=== PATIENT | male | born 1955 | race Caucasian/White ===

== ENCOUNTER 2023-02-05 00:36 | Day surgery (SDC) | payer MEDICARE, BC, SELFPAY ==
[2023-01-28 13:12] VITALS: BMI 38.5
--- NOTE | 2023-01-28 13:26 | PC.NURSE ---
Report to the Outpatient Waiting Room, entrance under the green pavilion located off [facility], at time ___0800____ on date __02/05/23 . Planned Procedure Time: ___1000 . Time changes happen often and if your time is changed the preop area will call you the afternoon before. - You and your visitor will be asked to self-screen and do not enter if you have any COVID symptoms. - Only one visitor is requested with a max of two and NO children visitors are allowed at this time. - The patient visitor may be requested to leave or wait in car when not with patient due to distancing restrictions. - A mask is optional within the hospital at this time. Patients may have clear liquids (water, carbonated beverages, clear teas, apple juice) until 3 hours prior to surgery (0700 AM) with a maximum of 20 ounces. - No food from midnight until time of surgery - Infants may have breast milk until 4 hours before surgery, infant formula 6 hours prior to surgery. - Children will be allowed to drink immediately following surgery. If applicable, please bring a bottle or sippy cup to assist with drinking. Juice, water, soda, and popsicles are readily available. For infants on formula, please bring formula the day of surgery. Pacifiers are allowed. Take the following medications with a SIP of water the morning of surgery: _AMLODIPINE, MONTELUKAST, INHALER__ DO NOT STOP ANY OF YOUR OTHER PRESCRIPTION MEDICATIONS PRIOR TO SURGERY ?EXCEPT THE FOLLOWING Medications to discontinue per physician NNONE Date to take last dose Please no make-up, nail korean, hairspray, perfume, deodorant, or body powder the day of surgery. No jewelry (including any body piercings) or valuables the day of surgery, leave them at home. Please take a shower or bath the night before, or the morning of, surgery with an antibacterial soap. Wear comfortable, loose fitting clothing. Children are encouraged to wear pajamas. - Jewelry must be removed prior to entering the operating room. Rings and piercings that are not removed may be cut off. - The hospital will not accept responsibility for valuables. - Please leave all valuables, including medications, at home the day of surgery. If you are going home after surgery, a licensed local company refrigerated truck driver must drive you home. - NO public transportation without another adult if you receive anesthesia. - We recommend that an adult stay with you for 24 hours following discharge. - We also recommend that you do not drive, make important decision, drink alcoholic beverages, or take any drugs that were not prescribed by your health care provider for at least 24 hours after your discharge time. For Pediatric surgeries, we recommend two adults accompany the child home. Follow any additional instructions given to you from your surgeon. If you or anyone in your household have experienced Covid symptoms in the past week, please notify your surgeon or the nurse liaison at the phone number below for possible testing. Telephone instructions given to ___PATIENT and asked if any additional questions and then verbalized understanding. Patient advised to call surgeon office or pre surgery nurse liaison [phone] if any additional questions.
--- NOTE | 2023-01-31 15:50 | PM.IMHP ---
H&P: HPI History of Present Illness Date/Time: 01/31/23 15:50 Chief Complaint: the patient is a 67-year-old male who sees Dr. Daniel regarding his left knee. The patient has a chronic ongoing history of pain localized to the left knee joint worse with activity somewhat relieved by rest. Patient has aching pain that limits what he can do reports mechanical symptoms with swelling cannot stand or walk for long periods he has trouble twisting or turning squatting kneeling going up and down stairs. Despite conservative measures including cortisone therapy and anti-inflammatories his symptoms continued. The patient had an MRI scan done this showed stabilizing ligaments of the knee to be intact there is some bone marrow edema of the medial tibial plateau with slight depression of the articular surface. There are oblique tears throughout the lateral meniscal body anterior horn and posterior horn and possible small radial tear of the inner margin of the body of the lateral meniscus. There are oblique tears of the body and posterior horn of the medial meniscus as well with a question of a radial or vertically oriented tear the posterior horn of the medial meniscus also. There is mild thinning of the articular cartilage in the medial compartment no significant chondromalacia of the patellofemoral or lateral compartments are noted. There is a moderate to large knee joint effusion and a tiny popliteal fossa cyst MRI report also reveals possible diffuse subcutaneous edema which may be related to venous stasis changes CHF or cellulitis. No cellulitis is noted on exam. At this point the patient is aware he has some degenerative changes throughout the knee and may not get full relief is knee pain for knee arthroscopy however he would like to proceed he has discussed this in detail with Dr. Daniel. Review of Systems Review of Systems: Ten point review of systems otherwise negative [facility] Social History Social History Smoking status: Current every day smoker Second hand tobacco smoke exposure: Yes Additional smoking assessment comments: STATES SMOKED 1PK/DAY/40YRS NOW DOWN TO 1PK EVERY 3 DAYS Alcohol intake: current Drinks per week: 6 Substance use: never Substance use type: does not use Living arrangements: with family Spiritual care concerns: No Meds Home Medications and Allergies Home Medications Medication Instructions Recorded Confirmed Type amitriptyline 50 mg tablet 50 mg HS 01/28/23 01/28/23 History amlodipine 10 mg tablet 10 mg QAM 01/28/23 01/28/23 History fluticasone fur. 200 mcg-umeclid 1 inh inhalation DAILY 01/28/23 01/28/23 History 62.5 mcg-vilant 25 mcg inhalat.powder (Trelegy Ellipta) hydrochlorothiazide 25 mg tablet 25 mg QAM 01/28/23 01/28/23 History montelukast 10 mg tablet 10 mg QAM 01/28/23 01/28/23 History Allergies Allergy/AdvReac Type Severity Reaction Status Date / Time No Known Allergies Allergy Unverified 01/28/23 13:09 Exam Narrative: on exam the patient is noted be a well-developed well-nourished male no acute distress alert orient x3. Normal mood and affect. Hearing and vision are intact. Respiratory is good no distress. Pulse regular rate rhythm. Abdomen benign. The patient is noted to be 6 ft 2 in tall 300 lb with a BMI 38.5. Extremities showed the patient's left knee to be painful with manipulation and range of motion he has tenderness on the joint lines with a positive Peyton exam negative Tejal knee joint is otherwise stable strength is 5 5 he does have moderate knee joint effusion left knee pain through the arc of motion tenderness medial and laterally. Neurovascular is intact skin is intact MRI scan is as above hips move well with negative Stinchfield negative Luiza. Patient walks with a limp because of his left knee pain central nervous system within normal limits. Assessment and Plan Assessment and plan
[2023-02-05] VITALS (9 sets, daily range): BP systolic 148–174; BP diastolic 82–98; PULSE 75–92; RESP 15–20; TEMP 36.4; O2SAT 96–100
--- NOTE | 2023-02-05 06:51 | WPDHPUPDATE1 ---
History and Physical Update Update Date/Time: 02/05/23 06:51 History and Physical has been reviewed, including an updated exam of the patient. There are NO changes in the patient's condition. Risks, benefits, and alternatives have been discussed and questions answered. Patient agrees to proceed with procedure.
[2023-02-05] MEDS: ACETAMINOPHEN 500 MG TABLET 1000 MG PO (08:23)
[2023-02-05] MEDS: LACTATED RINGERS 1,000 ML 30 ML IV CONT (08:50)
[2023-02-05] MEDS: KETOROLAC 15 MG/ML VIAL (*BKC) IV PUSH (08:57)
--- NOTE | 2023-02-05 09:39 | P.PNAN_ITS ---
Anes - Initial Pre Proc Eval Procedure: Operation Date: 02/05/23 10:00 Proposed Procedures p Left Knee Arthroscopy, Partial Medial and Lateral Meniscectomy, Proceed As Indicated - Armando Daniel MD Date/Time: 02/05/23 09:39 Surgeon: Armando Daniel MD Pre Op Diagnosis: medial & lateral meniscus tear left knee Patient Data Age: 67 Gender: M Height: 1.88 m Weight: 162.4 kg Last Vital Signs Temp 36.4 C 02/05/23 08:12 Pulse 92 02/05/23 08:12 Resp 20 02/05/23 08:12 BP 174/84 H 02/05/23 08:12 Pulse Ox 96 02/05/23 08:12 O2 Del Method Room Air 02/05/23 08:12 Allergies Allergy/AdvReac Type Severity Reaction Status Date / Time No Known Allergies Allergy Unverified 02/05/23 08:18 Home Medications Medication Instructions Recorded Confirmed Type amitriptyline 50 mg tablet 50 mg HS 01/28/23 02/05/23 History amlodipine 10 mg tablet 10 mg QA 01/28/23 02/05/23 History fluticasone fur. 200 mcg-umeclid 1 inh inhalation DAILY 01/28/23 02/05/23 History 62.5 mcg-vilant 25 mcg inhalat.powder (Trelegy Ellipta) hydrochlorothiazide 25 mg tablet 25 mg QA 01/28/23 02/05/23 History montelukast 10 mg tablet 10 mg QAM 01/28/23 02/05/23 History albuterol sulfate 90 mcg/actuation 2 puff inhalation Q4-5H PRN 02/05/23 02/05/23 History aerosol inhaler Wheezing Patient hx anesthesia problems: none Family hx anesthesia problems: none Results Review: All pre-operative results and documents have been reviewed as part of the pre- operative evaluation. PMFSH Past Medical History Medical History COPD (chronic obstructive pulmonary disease) Morbid obesity Smoker Social History Social History Smoking status: Current every day smoker Second hand tobacco smoke exposure: Yes Additional smoking assessment comments: STATES SMOKED 1PK/DAY/40YRS NOW DOWN TO 1PK EVERY 3 DAYS Alcohol intake: current Drinks per week: 6 Substance use: never Substance use type: does not use Living arrangements: with family Spiritual care concerns: No Anes - Eval Final PreProcedure Day of Procedure 02/05/23 09:39 Patient weight: morbidly obese Heart: regular rate and rhythm Lungs: decreased breath sounds Airway: Mallampati scale class II Neurological: alert and oriented Last oral intake: >/= 8 hours ASA classification: III Emergent: no Anesthetic plan: proceed Anesthesia type and monitoring: general LMA and standard monitoring Results Review: All pre-operative results and documents have been reviewed as part of the pre- operative evaluation. Informed Consent: The patient's anesthetic plan and its attendant risks and benefits were discussed with the patient/family/POA. Questions were solicited and answers provided to the satisfaction of the patient/family/POA.
[2023-02-05] MEDS: ceFAZolin 3 GM/D5W 100 ML 100 ML IVPB (10:11)
[2023-02-05] MEDS: LIDO 1%/EPINEPHRINE 1:100,000 20 ML VIAL INFILTRATE (10:26)
--- NOTE | 2023-02-05 10:49 | W.PM.PROC2 ---
Procedure Note - Detailed Date of Procedure 02/05/23 Pre-op Diagnosis medial & lateral meniscus tear left knee Post-op Diagnosis Same Procedure Performed [Left] knee arthroscopy with partial meniscetomy, medial and lateral Surgeon Armando Daniel MD Anesthesia General Description of Procedure Patient brought to the operating room and anesthetic was administered. The knee was steriley prepped and drapped in the usual manner. Standard portals were used. Superior medial portal was used for the outflow cannula, inferior lateral portal was used for the scope, inferior medial portal was used for the instruments. Arthroscopy was performed, the patellar femoral joint showed degenerative changes. The medial compartment showed a complex tear. The lateral compartment a large complex tear in the midbody. The ACL was intact. Using baskets and arabella the meniscal tears were trimmed back to a stable base so the nothing further could be pulled into the joint. Any loose or delaminated fragments were gently trimmed to a stable base. At this point the instruments were withdrawn, sutures placed and patient left the operating room in satisfactory condition. Estimated Blood Loss 20 Drains No Packing No Pathology None sent Complications No immediate complications Condition Stable Disposition PACU
[2023-02-05] MEDS: fentaNYL CITRATE INJ (*CRX) 100 MCG/2 ML VIAL 25 MCG IV PUSH (11:40)
[2023-02-05] MEDS: oxyCODONE HCL (*CRX) 5 MG TAB IR PO (11:57)
== END 2023-02-05 13:02 | disposition home or self-care (01) ==
PROVIDERS: PCP Internal Medicine; Visit Provider Orthopaedic Surgery
PROC: (CPT 29870; principal; 2023-02-05 10:00)
DX: M23.362 Other meniscus derangements, other lateral meniscus, left knee (principal); M23.332 Other meniscus derangements, other medial meniscus, left knee; J44.9 Chronic obstructive pulmonary disease, unspecified; E66.01 Morbid (severe) obesity due to excess calories; Z68.41 Body mass index [BMI] 40.0-44.9, adult; F17.210 Nicotine dependence, cigarettes, uncomplicated
CPT/HCPCS: 29880; A9270; J0690; J1100; J1885; J2250; J2405; J2704; J3010; J7120

== ENCOUNTER 2024-02-02 02:20 | Inpatient (IN) | payer MEDICARE, SELFPAY ==
[2024-02-02] VITALS (12 sets, daily range): BP systolic 102–120; BP diastolic 58–81; PULSE 69–99; RESP 16–24; TEMP 36.4–36.8; O2SAT 90–100; BMI 50.3
--- NOTE | ~2024-02-02 | US_ITS ---
Limited Abdominal Sonogram: Real-time sonographic imaging of the right upper quadrant was performed. Clinical History: Abdominal pain, cirrhosis Findings: The liver appears echogenic, with no evidence of mass lesion or bile duct dilatation. Main portal vein demonstrates normal direction of flow. Liver measures 22.7 cm in length. The gallbladder is well distended, and appears normal with no evidence of gallstone or wall thickening. The common b ile duct is not visualized. The pancreas, aorta, and IVC are obscured by bowel gas shadowing/body foreman bitus. Impression: Diffuse fatty infiltration of the liver, with associated hepatomegaly. Reviewed, dictated and finalized at location . Impression: Diffuse fatty infiltration of the liver, with associated hepatomegaly.
--- NOTE | ~2024-02-02 | CT_ITS ---
CT of the Abdomen and Pelvis: Indication: Abdominal pain Technique: 2.5 mm axial scans were obtained through the abdomen and pelvis following intravenous adm inistration of 100 cc of Omnipaque 350. Dose reduction technique was used on this scan by utilizing a utomated exposure control and iterative reconstruction technique. The dose-length product (DLP) was 1 782.84 mGy-cm. Findings: Scans through the lung bases demonstrate small right pleural effusion. There is diffuse hepatic steatosis. The spleen, pancreas, gallbladder, adrenals and kidneys are withi n normal limits. No evidence of aortic aneurysm. No lymphadenopathy. No bowel obstruction or bowel wall thickening. Suggestion of minimal pericolonic inflammatory change about the cecum, nonspecific.. Images through the pelvis were performed. Urinary bladder unremarkable. No pelvic mass seen. No ascit es. Impression: Possible mild pericolic inflammatory change about the cecum/ascending colon, nonspecific. Correlate f or subtle colitis. Diffuse hepatic steatosis. Small right pleural effusion. Reviewed, dictated and finalized at location . Impression: Possible mild pericolic inflammatory change about the cecum/ascending colon, no nspecific. Correlate for subtle colitis. Diffuse hepatic steatosis. Small right pleural effusion.
--- NOTE | ~2024-02-02 | XR_ITS ---
EXAMINATION: XR abdomen/kub 1V INDICATION: Abdominal distention TECHNIQUE: Supine views of the abdomen were obtained on four radiographs. COMPARISON: CT, 02/02/2024 FINDINGS: There are no definitely dilated loops of bowel. Contrast from recent CT partially opacifies the urinary bladder. No free intraperitoneal gas is identified. There is a phlebolith of the left pe lvis. 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 IMPRESSION: 1. No radiographic correlate for the patient's symptoms. Reviewed, dictated and finalized at location F.
--- NOTE | 2024-02-02 02:35 | PC.NURSE ---
this rn attempted to initiate iv access. this rn had an unsuccessful attempt and was trying to obtain blood tubes. pt stated, if you are not gonna get it and miss then don't try at all, get me someone else . this rn removed iv access and asked another rn to attempt at a line. ed pharmacist in charge owner made aware.
[2024-02-02 03:16] LABS: Basophils Percent Auto 0.2 % (0.2-1.2); Eosinophils Percent Auto 0.2 % (0-4.4); Hematocrit 25.3 % (42.0-52.0); Hemoglobin 8.4 g/dL (14.0-18.0); Immature Granulocyte Absolute 0.08 K/mm3 (0.00-0.031); Immature Granulocyte Percent A 1.5 % (0-0.5); Immature Platelet Fraction Pct 7.7 % (0.9-11.2); Lymphocytes Absolute Auto 0.98 K/mm3 (0.9-3.2); Mean Corpuscular HGB Conc 33.2 g/dl (32-36); Mean Corpuscular Hemoglobin 28.9 pg (26-34); Mean Corpuscular Volume 86.9 fl (80-100); Mean Platelet Volume 10.4 fl (7.4-10.4); Monocytes Absolute Auto 0.4 K/mm3 (0.1-0.6); Monocytes Percent Auto 7.9 % (2.6-8.5); Neutrophils Absolute Auto 3.9 K/mm3 (1.3-6.7); Neutrophils Percent Auto 72.2 % (45.5-73.1); Platelet Count Result 105 k/mm3 (150-375); Red Blood Count 2.91 M/mm3 (4.6-6.20); White Blood Count 5.4 K/mm3 (4.5-10.0)
--- NOTE | 2024-02-02 03:19 | ECG_ITS ---
Measurements Intervals [place] Rate: 90 P: 94 PA: 191 QRS: -88 QRSD: 166 T: 93 QT: 485 QTc: 596 Interpretive Statements SINUS RHYTHM ATRIAL COUPLETS AND ATRIAL PREMATURE COMPLEX RIGHT BUNDLE BRANCH BLOCK LEFT ANTERIOR FASCICULAR BLOCK BASELINE ARTIFACT- I, II, III, AVR, AVL, AVF, V1-V6 ABNORMAL ECG NO PREVIOUS ECG AVAILABLE FOR COMPARISON Electronically Signed On 02-02-2024 6:40:20 CDT by Jerry Ravi D.O.
[2024-02-02 03:39] LABS: Alanine Aminotransferase 17 U/L (6-50); Alkaline Phosphatase 113 U/L (38-126); Anion Gap 10 mmol/L (8-16); Aspartate Amino Transferase 70 U/L (17-59); Bilirubin,Total 2.5 mg/dL (0.2-1.3); Blood Urea Nitrogen 24 mg/dL (9-20); Carbon Dioxide 32 mmol/L (22-30); Chloride 80 mmol/L (98-107); Estimated CRCL calculation 117 ml/min; Estimated Glomerular Filt Rate > 60; Glucose 108 mg/dL (65-110); Potassium 2.5 mmol/L (3.4-5.0); Sodium 122 mmol/L (137-145)
[2024-02-02] MEDS: ONDANSETRON INJ 4 MG/2 ML VIAL IV PUSH (03:42)
[2024-02-02 03:52] LABS: Lipase 194 U/L (23-300); Magnesium 2.1 mg/dL (1.6-2.3)
[2024-02-02 04:04] LABS: NT Pro B Type Natriuretic Pept 1710 pg/mL (19.9-100); Troponin I < 0.012 ng/mL (0.000-0.034)
[2024-02-02 04:08] LABS: INR 1.2; Prothrombin Time 15.3 Seconds (11.1-14.7)
[2024-02-02 04:09] LABS: Partial Thromboplastin Time 28.3 Seconds (22.3-36.8)
--- NOTE | 2024-02-02 04:18 | ED.GENADULT ---
HPI - General Adult General Chief complaint: Abdominal Pain Stated complaint: ABD PAIN Time Seen by Provider: 02/02/24 02:55 History of Present Illness HPI narrative: Patient is a 68-year-old gentleman who presents emergency department with chief complaint of feeling very weak and having nausea. The patient reports that he feels as though he is swollen and reports that he feels weaker than normal. The patient reports he has been in both [facility] and [facility] and reports that his symptoms have not been improving. The patient states that he has no chest pain denies fever Related Data Home Medications Medication Instructions Recorded Confirmed amitriptyline 50 mg tablet 50 mg HS 01/28/23 02/05/23 amlodipine 10 mg tablet 10 mg QAM 01/28/23 02/05/23 fluticasone fur. 200 mcg-umeclid 1 inh inhalation DAILY 01/28/23 02/05/23 62.5 mcg-vilant 25 mcg inhalat.powder (Trelegy Ellipta) hydrochlorothiazide 25 mg tablet 25 mg QA 01/28/23 02/05/23 montelukast 10 mg tablet 10 mg QAM 01/28/23 02/05/23 albuterol sulfate 90 mcg/actuation 2 puff inhalation Q4-5H PRN 02/05/23 02/05/23 aerosol inhaler Wheezing carvedilol 12.5 mg tablet 12.5 mg PO BID 02/02/24 chlorthalidone 25 mg tablet 25 mg PO DAILY 02/02/24 furosemide 40 mg tablet 40 mg PO BID 02/02/24 Allergies Allergy/AdvReac Type Severity Reaction Status Date / Time No Known Allergies Allergy Unverified 02/05/23 08:18 Review of Systems Review of Systems: A 10 system review of systems was completed on the patient and is negative except for what is stated in the HPI. Nursing and ancillary documentation was reviewed. FOR[facility]LY [facility] Past Medical History Medical History COPD (chronic obstructive pulmonary disease) Morbid obesity Smoker Social History Social History Smoking status: Current every day smoker Second hand tobacco smoke exposure: Yes Additional smoking assessment comments: STATES SMOKED 1PK/DAY/40YRS NOW DOWN TO 1PK EVERY 3 DAYS Alcohol intake: current Drinks per week: 6 Substance use: never Substance use type: does not use Living arrangements: with family Spiritual care concerns: No Exam Narrative: GENERAL: Well-appearing, well-nourished, and in no acute distress. HEAD: Normocephalic, atraumatic. EYES: PERRLA and EOMI. ENT: Nares clear, no rhinorrhea or epistaxis. Mucous membranes moist. NECK: Supple. CHEST: Clear to auscultation. No respiratory distress. HEART: Regular rate and rhythm. No murmur heard. Normal peripheral pulses. ABDOMEN: Soft, nontender, nondistended, normal active bowel sounds. EXTREMITIES: Normal range of motion. No edema. SKIN: Warm, dry, no rash. NEURO: No focal deficits. Alert and oriented x3. PSYCH: Normal mood and affect. Course Vital Signs Vital signs: Vital Signs Temperature 36.6 C 02/02/24 02:15 Pulse Rate 99 02/02/24 02:15 Respiratory Rate 19 02/02/24 02:15 Blood Pressure 105/81 02/02/24 02:15 Pulse Oximetry 97 02/02/24 02:15 Oxygen Delivery Room Air 02/02/24 02:15 Temperature 36.6 C 02/02/24 02:15 Pulse Rate 86 02/02/24 04:02 Respiratory Rate 24 H 02/02/24 04:02 Blood Pressure 111/59 L 02/02/24 04:02 Pulse Oximetry 100 02/02/24 04:02 Oxygen Delivery Room Air 02/02/24 02:15 Medical Decision Making [facility] Narrative Medical decision making narrative: Differential diagnosis includes intra-abdominal infection, electrolyte abnormality, alcohol intoxication, alcohol withdrawal, CHF Patient is found to have a lactic acid of 4.0 potassium was 2.5 sodium was 122 ETOH was 14 lipase was 194 The patient was given less than 30 per kilos of fluids due to possible fluid overload CT scan showed Possible mild pericolic inflammatory change about the cecum/ascending colon, nonspecific. Correlate for subtle colitis. Diffuse hepatic steatosis. Small right pleural effusion Vital
[2024-02-02] MEDS: KCL 20 MEQ/SW 100 ML 100 ML 50 MEQ IVPB (04:32)
[2024-02-02] MEDS: POTASSIUM CHLORIDE 20 MEQ PACKET (FOR LIQUID) 40 MEQ PO (04:32)
[2024-02-02] MEDS: SODIUM CHLORIDE 0.9% IV 1,000 ML 999 ML IV CONT ×2 (04:42→06:48)
[2024-02-02 05:09] LABS: Ethanol 14 mg/dL (<10)
[2024-02-02] MEDS: THIAMINE 500 MG/NS 100 ML 500 MG/100 ML BAG 200 MG IVPB (05:55)
[2024-02-02] MEDS: PIPERACILLN/TAZ 3.375GM/NS50ML 3.375 GM/50 ML BAG IVPB ×4 (06:48→23:26)
[2024-02-02 07:04] LABS: Reflex Lactic Acid Yes or No Add Lactic
--- NOTE | 2024-02-02 07:43 | PC.NURSE ---
Assumed care of pt. Pt c/o stretcher uncomfortable, asking when he will be taken to his room. RN attempted to reposition pt for comfort. Informed no room assignment at this time.
--- NOTE | 2024-02-02 07:48 | PC.NURSE ---
Phlebotomy called for assistance with obtaining blood specimens
--- NOTE | 2024-02-02 10:36 | PM.IMHP ---
H&P: HPI History of Present Illness Date/Time: 02/02/24 10:36 Chief Complaint: 1. Abdominal pain 2. Poor appetite Narrative: Reji Vasquez is a 68 yo M with a mHx significant for obesity, ELIA, HTN, Asthma/COPD Over the last week he has become fatigued with malaise; his symptoms were aggravated by exertion, alleviated by rest; associated with nausea, anorexia and poor performance of his ADLs. There were no records of vomiting, fevers, diarrhea, flank pain, fevers, chills or rigors. He does not smoke/chew tobacco, drink alcohol or consume recreational/illicit drugs; his family hx is not contributory to the PC Work-up findings: K 2.5 Na 122 Cl 80 HCO3 32 AG 10 BUN 24 Cr. 0.90 GFR 117 LA: 4 >> 1.1 Mg 2.1 Phos 1.9 T. Bili 2.5 AST 70 ALT 17 ALP 113 BNP 1710 Lipase 194 CTAP: Possible mild pericolic inflammatory change about the cecum/ascending colon, nonspecific. Correlate for subtle colitis. Diffuse hepatic steatosis. Small right pleural effusion. He will be admitted, evaluated and managed for Colitis Review of Systems Constitutional: Constitutional: Reports fatigue and Reports lethargy Eyes: Eyes: Reports no additional eye complaints ENT: Reports Normal hearing present, Denies dysphagia, Denies epistaxis and Denies nasal congestion Cardiovascular: Cardiovascular: Reports leg edema, Denies lightheadedness and Denies palpitations Respiratory: Respiratory: Reports dyspnea and Reports dyspnea on exertion Gastrointestinal: Gastrointestinal: Reports bloating, Denies diarrhea and Denies nausea Genitourinary: Genitourinary: Denies urinary hesitancy, Denies urinary incontinence and Denies urinary urgency Musculoskeletal: Musculoskeletal: Reports myalgias and Denies joint swelling Integumentary/Breasts: Skin/Breast: Reports dry skin and Reports wounds (Right buttocks) Neurologic: Reports system reviewed and no additional complaints, except as documented, Reports abnormal gait and Denies confusion Psychiatric: Psychiatric: Reports no additional psychiatric complaints [facility] Past Medical History Medical History Chronic pain syndrome COPD (chronic obstructive pulmonary disease) Hepatic steatosis Hypertension Morbid obesity Obstructive sleep apnea Smoker Social History Social History Smoking status: Current every day smoker Second hand tobacco smoke exposure: Yes Alcohol intake: current Drinks per week: 6 Substance use: never Substance use type: does not use Do You Feel Safe in your Home?: Yes Lack of Transportation: No Lack of Food: Never True Current Housing: I Have Housing Concerned About Future Housing: No Difficulty Paying Gas/Electric Bills: No Difficulty Paying for Meds: No Currently Unemployed: No Education: High School Diploma/GED Difficulty w/ Childcare or Family Care: No Living arrangements: with family Spiritual care concerns: No Meds Home Medications and Allergies Home Medications Medication Instructions Recorded Confirmed Type amitriptyline 50 mg tablet 50 mg PO HS 01/28/23 02/02/24 History amlodipine 10 mg tablet 10 mg QA 01/28/23 02/02/24 History fluticasone fur. 200 mcg-umeclid 1 inh inhalation DAILY 01/28/23 02/02/24 History 62.5 mcg-vilant 25 mcg inhalat.powder (Trelegy Ellipta) hydrochlorothiazide 25 mg tablet 25 mg QA 01/28/23 02/02/24 History montelukast 10 mg tablet 10 mg QA 01/28/23 02/02/24 History albuterol sulfate 90 mcg/actuation 2 puff inhalation Q4-5H PRN 02/05/23 02/02/24 History aerosol inhaler Wheezing hydrocodone 7.5 mg-acetaminophen 1 tablet PO Q4H PRN pain #40 tabs 02/05/23 02/02/24 Rx 325 mg tablet carvedilol 12.5 mg tablet 12.5 mg PO BID 02/02/24 02/02/24 History chlorthalidone 25 mg tablet 25 mg PO DAILY 02/02/24 02/02/24 History furosemide 40 mg tablet 40 mg PO BID 02/02/24 02/02/24 History Allergies Allergy/AdvReac Type Severit
[2024-02-02] MEDS: LORazepam INJ (*CRX) 2 MG/ML VIAL IV PUSH (11:06)
--- NOTE | 2024-02-02 11:09 | PC.NURSE ---
Pt c/o anxiety requesting meds. Ativan given. Noted excoriated area to right chest beneath breast. states chronic condition.
[2024-02-02 11:13] LABS: Lactic Acid 1.1 mmol/L (0.7-2.0); Phosphorus 1.9 mg/dL (2.5-4.5)
[2024-02-02 11:19] LABS: Glucose Point of Care 116 mg/dl (65-105)
--- NOTE | 2024-02-02 13:21 | ADMGEN ---
This patient, Reji Vasquez, was admitted to Medical Room 246-01. Patient/family oriented to hospital policies and general routines including ID bracelet, bed and alarms, visiting hours, pain management, procedures, bathroom and other care routines, personal items, smoking policy, room service/diet, and visiting hours. Information on how to activate the Rapid Response Team has been discussed. Patient/Family are encouraged to report perceived risks to care and to ask questions if they do not understand what they are told or what they should do.
[2024-02-02] MEDS: SODIUM CHLORIDE 0.9% IV 1,000 ML 125 ML IV CONT (13:34)
[2024-02-02 16:09] LABS: Appearance Urine Clear (Clear); Bacteria Urine None Seen /hpf; Bilirubin Urine 2+ (Negative); Blood Urine 2+ (Negative); Color Urine Dark Yellow (Yellow); Glucose Urine UA Negative (Negative); Ketones Urine Trace mg/dL (Negative); Leukocyte Esterase Ur Trace LEU/UL (Negative); Need Manual Microscopic Reviewed; Nitrate Urine Negative (Negative); Protein Urine Trace mg/dL (Negative); RBC Urine 21-50 /hpf (0-2); Specific Grav Ur 1.046 (1.001-1.035); Squamous Epithelial Cell Urine None Seen /hpf (Few); WBC Urine 0-5 /hpf (0-3)
[2024-02-02 16:10] LABS: Add Urine Microscopic? YES
[2024-02-02] MEDS: KETOROLAC 30 MG/ML VIAL (*BKC) IV PUSH ×2 (17:02→21:17)
[2024-02-02] MEDS: POTASSIUM PHOS,M-BASIC-D-BASIC 20 MMOL in SODIUM CHLORIDE 0.9% IV 250 ML 42.78 MMOL IVPB (17:14)
[2024-02-02 18:34] LABS: Glucose Point of Care 135 mg/dl (65-105)
[2024-02-02 18:55] LABS: Alveolar/Arterial O2 Gradient 17.4 mmHg; Base Excess ABG 10.6 mEq/l (+/-2.0); Fractional Inspired Oxygen 24 %; HCO3 ABG 35.4 mEq/l (22.0-26.0); Oxygen Content ABG 11.4 %vol (16.0-22.0); Oxygen Saturation ABG 97.5 % (95.0-100.0); Oxyhemoglobin 95.3 % THb (90.0-100.0); PCO2 ABG 49.7 mmHg (35.0-45.0); PO2 ABG 94.6 mmHg (80.0-100.0); PO2 FiO2 Ratio Arterial Blood 3.94 %; Total Hemoglobin 8.4 g/dL (12.0-18.0); pH ABG 7.471 (7.350-7.450)
[2024-02-02 18:57] LABS: Device NASAL CANNULA; Modified Allen's Test Pass; Site Drawn RIGHT RADIAL
[2024-02-02 19:53] LABS: Lactic Acid Reflex 0.9 mmol/L (0.7-2.0)
[2024-02-02 19:54] LABS: Ammonia 22 umol/L (9-30)
[2024-02-02 23:28] LABS: Glucose Point of Care 111 mg/dl (65-105)
[2024-02-02] MEDS: POTASSIUM PHOS,M-BASIC-D-BASIC 20 MMOL in SODIUM CHLORIDE 0.9% IV 250 ML 42.7 MMOL IVPB (23:28)
[2024-02-03] VITALS (12 sets, daily range): BP systolic 98–122; BP diastolic 54–68; PULSE 68–88; RESP 16–20; TEMP 36.2–36.6; O2SAT 93–100
[2024-02-03] MEDS: PIPERACILLN/TAZ 3.375GM/NS50ML 3.375 GM/50 ML BAG IVPB ×3 (05:05→18:09)
[2024-02-03] MEDS: KETOROLAC 30 MG/ML VIAL (*BKC) IV PUSH ×3 (05:06→20:15)
[2024-02-03] MEDS: SODIUM CHLORIDE 0.9% IV 1,000 ML 125 ML IV CONT ×3 (05:07→23:55)
[2024-02-03 05:43] LABS: Glucose Point of Care 107 mg/dl (65-105)
[2024-02-03 08:55] LABS: Glucose Point of Care 91 mg/dl (65-105)
[2024-02-03 09:36] LABS: Basophils Percent Auto 0.4 % (0.2-1.2); Eosinophils Absolute Auto 0.1 K/mm3 (0-0.3); Eosinophils Percent Auto 0.9 % (0-4.4); Hematocrit 23.6 % (42.0-52.0); Hemoglobin 7.7 g/dL (14.0-18.0); Immature Granulocyte Absolute 0.07 K/mm3 (0.00-0.031); Immature Granulocyte Percent A 1.3 % (0-0.5); Immature Platelet Fraction Pct 8.6 % (0.9-11.2); Lymphocytes Absolute Auto 0.86 K/mm3 (0.9-3.2); Lymphocytes Percent Auto 15.6 % (18.3-44.2); Mean Corpuscular HGB Conc 32.6 g/dl (32-36); Mean Corpuscular Hemoglobin 30.1 pg (26-34); Mean Corpuscular Volume 92.2 fl (80-100); Mean Platelet Volume 11.2 fl (7.4-10.4); Monocytes Absolute Auto 0.4 K/mm3 (0.1-0.6); Monocytes Percent Auto 7.1 % (2.6-8.5); Neutrophils Absolute Auto 4.1 K/mm3 (1.3-6.7); Neutrophils Percent Auto 74.7 % (45.5-73.1); Platelet Count Result 87 k/mm3 (150-375); Red Blood Count 2.56 M/mm3 (4.6-6.20); Red Cell Distribution Width 15.8 % (11.5-14.5); White Blood Count 5.5 K/mm3 (4.5-10.0)
[2024-02-03] MEDS: ENOXAPARIN 40 MG/0.4 ML SYRINGE SUB-Q (09:49)
[2024-02-03] MEDS: TOLNAFTATE 1% POWDER 45 GM BTL 1 APPLIC TOPICAL ×2 (09:50→20:14)
[2024-02-03] MEDS: THIAMINE HCL 200 MG/2 ML VIAL 100 MG IV PUSH (09:50)
[2024-02-03 09:54] LABS: Anisocytosis 1+; Hypochromasia 1+; Platelet Estimate Decreased (Adequate); Schistocytes None Seen
[2024-02-03 09:55] LABS: Anion Gap 3 mmol/L (8-16); Blood Urea Nitrogen 28 mg/dL (9-20); Calcium 7.5 mg/dL (8.4-10.2); Carbon Dioxide 35 mmol/L (22-30); Chloride 88 mmol/L (98-107); Estimated CRCL calculation 106 ml/min; Estimated Glomerular Filt Rate > 60; Glucose 98 mg/dL (65-110); Potassium 3.2 mmol/L (3.4-5.0); Sodium 126 mmol/L (137-145)
--- NOTE | 2024-02-03 12:07 | PM.IMPN ---
Progress Note: A&P Assessment and Plan (1) Colitis: Code(s): K52.9 - Noninfective gastroenteritis and colitis, unspecified Status: Acute Assessment and Plan: Acute, Severe IVFs; Antibiotics; Anti-inflammatory Rx (2) Acute hypokalemia: Code(s): E87.6 - Hypokalemia Status: Acute Assessment and Plan: Will replete and monitor (3) Obesity, morbid, BMI 50 or higher: Code(s): E66.01 - Morbid (severe) obesity due to excess calories Status: Acute Assessment and Plan: Diet and lifestyle modification (4) Hypertension: Code(s): I10 - Essential (primary) hypertension Status: Acute Assessment and Plan: Resume home meds (5) Chronic pain syndrome: Code(s): G89.4 - Chronic pain syndrome Status: Acute Assessment and Plan: Provide analgesia (6) Hyponatremia: Code(s): E87.1 - Hypo-osmolality and hyponatremia Status: Acute Assessment and Plan: Acute; probably 2/2 potomania Check sOsm; IVFs, restrict free water intake (7) Hypophosphatasia: Code(s): E83.39 - Other disorders of phosphorus metabolism Status: Acute Assessment and Plan: Replete and monitor (8) Lactic acidemia: Code(s): E87.20 - Acidosis, unspecified Status: Acute Assessment and Plan: Acute, severe. Improving (9) Physical deconditioning: Code(s): R53.81 - Other malaise Status: Acute Assessment and Plan: PT/OT eval and Rx; Falls and safety precautions (10) Gluteal abscess: Code(s): L02.31 - Cutaneous abscess of buttock Status: Acute Assessment and Plan: Chronic; Acute exacerbation General surgery consulted (11) Obstructive sleep apnea: Code(s): G47.33 - Obstructive sleep apnea (adult) (pediatric) Status: Acute Assessment and Plan: Poor compliance with CPAP nightly (12) Hepatic steatosis: Code(s): K76.0 - Fatty (change of) liver, not elsewhere classified Status: Acute Assessment and Plan: Chronic; stable Dietary and lifestyle modification counseling (13) Elevated bilirubin: Code(s): R17 - Unspecified jaundice Status: Acute Assessment and Plan: Likely 2/2 cholestasis with hepatic steatosis (14) Normocytic anemia: Code(s): D64.9 - Anemia, unspecified Status: Acute Assessment and Plan: Hb 8.5; Monitor with goal >7 Plan Reji Vasquez is a 68 yo M with a mHx significant for obesity, ELIA, HTN, Asthma/COPD CTAP: Possible mild pericolic inflammatory change about the cecum/ascending colon, nonspecific. Correlate for subtle colitis. Diffuse hepatic steatosis. Small right pleural effusion. He will be admitted, evaluated and managed for Colitis Plan: 1. Zosyn; Toradol; 2. IVFs 3. Replete and monitor electrolytes. restrict free water intake 4. Monitor LA 5. Monitor Hb with goal >7 6. General surgery input on gluteal abscess 7. Provide and optimize analgesia 8. PT/OT eval and Rx Time Spent With Patient Time with patient: 25 - 35 minutes Subjective Date/time seen: 02/03/24 12:07 Interval history: 02/03/24: Seen and examined; feels better with less pain and discomfort. He is being managed for colitis and physical deconditioning. Review of Systems Constitutional: Constitutional: Reports fatigue and Reports lethargy Eyes: Eyes: Reports no additional eye complaints ENT: Reports Normal hearing present, Denies dysphagia, Denies epistaxis and Denies nasal congestion Cardiovascular: Cardiovascular: Reports leg edema, Denies lightheadedness, Denies palpitations, Reports dyspnea and Reports dyspnea on exertion Respiratory: Respiratory: Reports dyspnea and Reports dyspnea on exertion Gastrointestinal: Gastrointestinal: Reports bloating, Denies dysphagia, Denies diarrhea and Denies nausea Genitourinary: Genitourinary: Denies urinary hesitancy, Denies urinary incontinence and Denies urinar
[2024-02-03] MEDS: POTASSIUM CHLORIDE 20 MEQ PACKET (FOR LIQUID) 40 MEQ PO ×2 (12:46→18:08)
[2024-02-03] MEDS: LORazepam INJ (*CRX) 2 MG/ML VIAL IV PUSH (15:46)
[2024-02-03 16:58] LABS: Glucose Point of Care 144 mg/dl (65-105)
[2024-02-03 20:06] LABS: IFOB Positive Control Positive; Immunochemical Fecal Occult Bl Positive (N)
--- NOTE | 2024-02-03 20:49 | WPDCN ---
Assessment and Plan Assessment and plan (1) Gluteal abscess: Code(s): L02.31 - Cutaneous abscess of buttock Status: Acute Assessment and Plan: Patient may have had a left upper buttock abscess which is already drained. Currently there is no necrotic tissue or pus to left to be drained out of the wound. It is widely open now. No much granulation tissue at the base but no necrotic tissue either. No need for additional surgical drainage or debridement. Recommend placement of Mepitel wound dressing and change on a daily basis. We will consult wound care nurses to see if not already done. HPI Data of Consult Date/Time: 02/03/24 20:49 Requesting Physician: Tawana Ramires DO Primary Care Provider: Glenn Roche, Consult Narrative Reason for consult: Left upper buttock wound Narrative: Reji Vasquez is a 68 year old male admitted to the hospital for hypokalemia and weakness. He developed a recurrent wound on his left upper buttock region. He denies any pain right now. No fever. States that he had a previous wound in the area. He ambulates with the aid of a walker. Review of Systems Review of Systems: The remainder of the review of systems to include constitutional, HEENT, cardiovascular, respiratory, GI, , integumentary, musculoskeletal, endocrine, immunologic, hematologic, psychiatric, and neurologic are all negative except for which is mentioned above in the HPI. [facility] Past Medical History Medical History Chronic pain syndrome COPD (chronic obstructive pulmonary disease) Hepatic steatosis Hypertension Morbid obesity Obstructive sleep apnea Smoker Social History Social History Smoking status: Current every day smoker Second hand tobacco smoke exposure: Yes Alcohol intake: current Drinks per week: 6 Substance use: never Substance use type: does not use Do You Feel Safe in your Home?: Yes Lack of Transportation: No Lack of Food: Never True Current Housing: I Have Housing Concerned About Future Housing: No Difficulty Paying Gas/Electric Bills: No Difficulty Paying for Meds: No Currently Unemployed: No Education: High School Diploma/GED Difficulty w/ Childcare or Family Care: No Living arrangements: with family Spiritual care concerns: No Meds Home Medications and Allergies Home Medications Medication Instructions Recorded Confirmed Type amitriptyline 50 mg tablet 50 mg PO HS 01/28/23 02/02/24 History amlodipine 10 mg tablet 10 mg QAM 01/28/23 02/02/24 History fluticasone fur. 200 mcg-umeclid 1 inh inhalation DAILY 01/28/23 02/02/24 History 62.5 mcg-vilant 25 mcg inhalat.powder (Trelegy Ellipta) hydrochlorothiazide 25 mg tablet 25 mg QAM 01/28/23 02/02/24 History montelukast 10 mg tablet 10 mg QAM 01/28/23 02/02/24 History albuterol sulfate 90 mcg/actuation 2 puff inhalation Q4-5H PRN 02/05/23 02/02/24 History aerosol inhaler Wheezing hydrocodone 7.5 mg-acetaminophen 1 tablet PO Q4H PRN pain #40 tabs 02/05/23 02/02/24 Rx 325 mg tablet carvedilol 12.5 mg tablet 12.5 mg PO BID 02/02/24 02/02/24 History chlorthalidone 25 mg tablet 25 mg PO DAILY 02/02/24 02/02/24 History furosemide 40 mg tablet 40 mg PO BID 02/02/24 02/02/24 History Allergies Allergy/AdvReac Type Severity Reaction Status Date / Time No Known Allergies Allergy Unverified 02/05/23 08:18 Vital Signs Vital Signs - 24 hr 02/03/24 00:00 02/03/24 04:00 02/03/24 05:05 Temperature 36.6 C Pulse Rate 68 71 72 Respiratory Rate 18 Blood Pressure 98/54 L Pulse Oximetry 99 Oxygen Delivery Oxygen Flow Rate Fraction of Inspired Oxygen 02/03/24 08:02 02/03/24 08:24 02/03/24 08:32 Temperature 36.2 C L Pulse Rate 72 Respiratory Rate 18 Blood Pressure 116/68 Pulse Oximetry 100 98 Oxygen Delivery Room Air Nasal Cannula Oxygen Flow Rate 1 Fraction
[2024-02-04] VITALS (10 sets, daily range): BP systolic 97–110; BP diastolic 53–56; PULSE 76–88; RESP 12–18; TEMP 36.4–36.7; O2SAT 92–98
[2024-02-04] MEDS: PIPERACILLN/TAZ 3.375GM/NS50ML 3.375 GM/50 ML BAG IVPB ×4 (05:55→17:45)
[2024-02-04] MEDS: KETOROLAC 30 MG/ML VIAL (*BKC) IV PUSH (05:55)
--- NOTE | 2024-02-04 08:09 | PCPTNOTE ---
Patient refused treatment this session. Patient reported he's barely awake and not right now. Encouraged patient to participate with PT. Patient continued to refuse.
[2024-02-04 08:35] LABS: Basophils Percent Auto 0.4 % (0.2-1.2); Eosinophils Absolute Auto 0.1 K/mm3 (0-0.3); Eosinophils Percent Auto 0.9 % (0-4.4); Hematocrit 23.2 % (42.0-52.0); Hemoglobin 7.2 g/dL (14.0-18.0); Immature Granulocyte Absolute 0.11 K/mm3 (0.00-0.031); Immature Platelet Fraction Pct 9.6 % (0.9-11.2); Lymphocytes Absolute Auto 1.04 K/mm3 (0.9-3.2); Mean Corpuscular Volume 93.5 fl (80-100); Mean Platelet Volume 11.3 fl (7.4-10.4); Monocytes Absolute Auto 0.5 K/mm3 (0.1-0.6); Neutrophils Absolute Auto 3.8 K/mm3 (1.3-6.7); Neutrophils Percent Auto 68.7 % (45.5-73.1); Platelet Count Result 79 k/mm3 (150-375); Red Blood Count 2.48 M/mm3 (4.6-6.20); Red Cell Distribution Width 15.9 % (11.5-14.5); White Blood Count 5.5 K/mm3 (4.5-10.0)
[2024-02-04] MEDS: THIAMINE HCL 200 MG/2 ML VIAL 100 MG IV PUSH (08:40)
[2024-02-04] MEDS: TOLNAFTATE 1% POWDER 45 GM BTL 1 APPLIC TOPICAL ×2 (08:44→21:49)
[2024-02-04 08:46] LABS: Alanine Aminotransferase 18 U/L (6-50); Albumin Level 2.6 g/dL (3.5-5.1); Alkaline Phosphatase 98 U/L (38-126); Anion Gap 3 mmol/L (8-16); Aspartate Amino Transferase 59 U/L (17-59); Bilirubin,Total 1.3 mg/dL (0.2-1.3); Blood Urea Nitrogen 28 mg/dL (9-20); Calcium 7.4 mg/dL (8.4-10.2); Carbon Dioxide 34 mmol/L (22-30); Chloride 92 mmol/L (98-107); Estimated CRCL calculation 90 ml/min; Estimated Glomerular Filt Rate > 60; Glucose 112 mg/dL (65-110); Potassium 3.1 mmol/L (3.4-5.0); Sodium 129 mmol/L (137-145)
[2024-02-04 09:39] LABS: Hypochromasia 2+; Platelet Estimate Decreased (Adequate); Schistocytes None Seen; Stomatocytes 2+
[2024-02-04 09:40] LABS: Target Cells 2+
--- NOTE | 2024-02-04 10:51 | PM.IMPN ---
Progress Note: A&P Assessment and Plan (1) Colitis: Code(s): K52.9 - Noninfective gastroenteritis and colitis, unspecified Status: Acute (2) Acute hypokalemia: Code(s): E87.6 - Hypokalemia Status: Acute (3) Obesity, morbid, BMI 50 or higher: Code(s): E66.01 - Morbid (severe) obesity due to excess calories Status: Acute (4) Hypertension: Code(s): I10 - Essential (primary) hypertension Status: Acute (5) Chronic pain syndrome: Code(s): G89.4 - Chronic pain syndrome Status: Acute (6) Hyponatremia: Code(s): E87.1 - Hypo-osmolality and hyponatremia Status: Acute (7) Hypophosphatasia: Code(s): E83.39 - Other disorders of phosphorus metabolism Status: Acute (8) Lactic acidemia: Code(s): E87.20 - Acidosis, unspecified Status: Acute (9) Physical deconditioning: Code(s): R53.81 - Other malaise Status: Acute (10) Gluteal abscess: Code(s): L02.31 - Cutaneous abscess of buttock Status: Acute (11) Obstructive sleep apnea: Code(s): G47.33 - Obstructive sleep apnea (adult) (pediatric) Status: Acute (12) Hepatic steatosis: Code(s): K76.0 - Fatty (change of) liver, not elsewhere classified Status: Acute (13) Elevated bilirubin: Code(s): R17 - Unspecified jaundice Status: Acute (14) Normocytic anemia: Code(s): D64.9 - Anemia, unspecified Status: Acute Plan 68-year-old male with past medical history significant for obesity, obstructive sleep apnea, hypertension, asthma presented with abdominal pain, CT abdomen and pelvis showed mild pericolic inflammatory change about the cecum/ascending colon, nonspecific. Diffuse hepatic steatosis along with small right pleural effusion. 1. Abdominal pain: Possible colitis Tolerating liquid diet Continue with Zosyn Will discontinue IV fluids for now 2. Hypokalemia: Supplement potassium 3. Cutaneous abscess of the gluteal region: Appreciate surgery help Local wound care 4. Anemia: Slowly dropping H&H Fecal occult blood positive Obtain iron panel, vitamin B12, folate, LDH, haptoglobin with next set of labs Will start on PPI IV b.i.d. Will get GI consult Hold DVT prophylaxis/Lovenox DC Toradol Will transfuse for hemoglobin less than 7 5. Due to prophylaxis: SCDs, Lovenox on hold as mentioned above, noted thrombocytopenia 6. Code status: Full 7. Disposition: Pending improvement Time Spent With Patient Time with patient: 15 - 25 minutes Subjective Date/time seen: 02/04/24 10:51 Interval history: No acute events overnight Review of Systems Constitutional: Constitutional: Reports fatigue and Reports lethargy Eyes: Eyes: Reports no additional eye complaints ENT: Reports Normal hearing present, Denies dysphagia, Denies epistaxis and Denies nasal congestion Cardiovascular: Cardiovascular: Reports leg edema, Denies lightheadedness, Denies palpitations, Reports dyspnea and Reports dyspnea on exertion Respiratory: Respiratory: Reports dyspnea and Reports dyspnea on exertion Gastrointestinal: Gastrointestinal: Reports bloating, Denies dysphagia, Denies diarrhea and Denies nausea Genitourinary: Genitourinary: Denies urinary hesitancy, Denies urinary incontinence and Denies urinary urgency Musculoskeletal: Musculoskeletal: Reports abnormal gait, Reports myalgias and Denies joint swelling Integumentary/Breasts: Skin/Breast: Reports dry skin and Reports wounds (Right buttocks) Neurologic: Reports system reviewed and no additional complaints, except as documented, Reports Normal hearing present, Reports abnormal gait and Denies confusion Psychiatric: Psychiatric: Reports no additional psychiatric complaints and Denies confusion Endocrine: Endocrine: Reports fatigue and Denies palpitations Exam Const: General: no acute distress; No confusion HENMT: Ears: TM's normal bilaterally M
[2024-02-04] MEDS: POTASSIUM CHLORIDE 20 MEQ PACKET (FOR LIQUID) 40 MEQ PO ×2 (11:32→17:44)
[2024-02-04] MEDS: PANTOPRAZOLE SODIUM IV 40 MG VIAL IV PUSH ×2 (11:32→21:47)
--- NOTE | 2024-02-04 13:13 | PM.PNGS ---
Progress Note: A&P Assessment and Plan (1) Gluteal abscess: Code(s): L02.31 - Cutaneous abscess of buttock Status: Acute Assessment and Plan: Left upper buttock abscess that has already drained and now with a buttock wound. No necrotic tissues or purulent drainage that needs drained. Wound care consulted and recommended changing to a Duoderm cover dressing. Continue local wound care. No indication for any surgical intervention. Will sign off at this time. Please call with any surgical concerns. Plan I have discussed the patient's case and plan of care with Dr. Steward. Subjective Subjective Date/Time Seen: 02/04/24 13:13 Interval history: This is a 68 year old man who was admitted with colitis and a possible gluteal abscess that has drained with a now open wound. Wound care consulted. Chart reviewed. He reports feeling better today. He has more of an appetite and his diarrhea is slowing. He denies any pain at the buttock wound. He is sitting in the chair and has to have 3 staff assist him back to bed. He typically uses a walker at home but admits to only ambulating from his bed to his recliner and then back to bed all day. He is typically sedentary most of the day and night. Exam Const: General: comfortable and no acute distress Orientation/consciousness: patient oriented x3 GI: Inspection: non-distended GI Palp: Yes Soft to palpation, Yes Tenderness to palpation present (GI) (RLQ and LLQ mild tenderness), No Guarding due to palpation present (GI) and No Rebound tenderness present Auscultation: normal bowel sounds Other: Unable to assess buttock wound as patient is in the chair and requires max assist to get up Objective Data Vital Signs Vital Signs: Vital Signs - 24 hr 02/03/24 14:14 02/03/24 16:00 02/03/24 20:00 Temperature 97.7 F Pulse Rate 77 81 Respiratory Rate 16 Blood Pressure 122/59 L Pulse Oximetry 93 Oxygen Delivery Room Air 02/03/24 20:53 02/03/24 20:00 02/04/24 00:00 Temperature 97.5 F L Pulse Rate 88 82 81 Respiratory Rate 20 Blood Pressure 102/55 L Pulse Oximetry 98 Oxygen Delivery 02/04/24 04:00 02/04/24 04:26 02/04/24 09:57 Temperature 98.0 F Pulse Rate 81 79 Respiratory Rate 18 Blood Pressure 105/53 L Pulse Oximetry 92 97 Oxygen Delivery Room Air Intake/Output Intake/Output: Intake & Output 02/01/24 02/02/24 02/03/24 02/04/24 23:59 23:59 23:59 23:59 Intake Total 2656.7 3236.7 780 Output Total 925 600 500 Balance 1731.7 2636.7 280 Meds/Results Medications: Active Medications Generic Name Dose Route Start Last Admin Trade Name Freq PRN Reason Stop Dose Admin Acetaminophen 650 mg 02/02/24 10:34 Acetaminophen 325 Mg Tablet PO Q4H PRN Mild Pain (1-3) or Fever Enoxaparin Sodium 40 mg 02/03/24 09:00 02/04/24 10:16 Enoxaparin 40 Mg/0.4 Ml Syringe SUB-Q Not Given DAILY LANA Piperacillin/Tazobactam/Dextrose 3.375 gm in 50 mls @ 100 mls/hr 02/02/24 14:00 02/04/24 11:33 Zosyn 3.375 Gm/Ns 50 Ml IVPB 02/09/24 11:59 100 mls/hr Q6HR LANA Administration Lorazepam 2 mg 02/02/24 06:23 02/03/24 15:46 Lorazepam Inj (*Crx) 2 Mg/Ml Vial IV PUSH 2 mg Q2H PRN Administration CIWA > 15 Miconazole Nitrate 1 applic 02/02/24 09:00 02/04/24 08:44 Miconazole 2% Antifungal Ointment 56 Gm TOPICAL 1 applic Q12HR LANA Administration Ondansetron HCl 4 mg 02/02/24 06:23 Ondansetron Inj 4 Mg/2 Ml Vial IV PUSH Q4H PRN Nausea Pantoprazole Sodium 40 mg 02/04/24 10:50 02/04/24 11:32 Pantoprazole Sodium Iv 40 Mg Vial IV PUSH 40 mg Q12HR LANA Administration Potassium Chloride 40 meq 02/04/24 10:50 02/04/24 11:32 Potassium Chloride 20 Meq Packet (For Liquid) PO 02/04/24 17:01 40 meq BID LANA Administration Thiamine HCl 100 mg 02/03/24 09:00 02/04/24 08:40 Thiamine Hcl 200 Mg/2 Ml Vial IV PUSH 100 mg DAILY LANA Administration Tevin
--- NOTE | 2024-02-04 13:31 | P.CONGI_ITS ---
I, Gurpreet Emery MD, have provided a substantive portion of the care of this patient and discussed the patient with my Nurse Practitioner. I have reviewed any new relevant radiographic and laboratory results including medications. I agree with her documentation as noted below.?I personally performed the medical decision making and much of the history and exam for this encounter. briefly he is here with at least 1 month of intermittent abdominal discomfort, less appetite, also noted loose stools. He is a drinker. Here CT scan showed possible mild colitis, hgb 8 and had FOBT +, started on iv abx, also noted gluteal abscess already drained. At baseline he has poor mobility and uses a walker. Had colonoscopy elsewhere ~ 3 years ago. He has generalize weakness. Also noted low platelets and wonder if could have liver disease, will get hepatitis panel, hiv and stool cultures with c diff. At some point will get egd and colonoscopy once his overall condition improves Assessment and Plan Assessment and plan (1) Colitis: Code(s): K52.9 - Noninfective gastroenteritis and colitis, unspecified Status: Acute Assessment and Plan: -Found to have possible mild pericolonic inflammatory change about the cecum and ascending colon that is nonspecific. --- been having diarrhea but only one time per day. Infectious, inflammatory, less likely ischemic, malignancy should be excluded -He is on Zosyn which we will continue. - get CRP and ESR along with stool culture and C diff. -He will eventually need a colonoscopy to assess the site to rule out underlying malignancy, IBD, and GI blood loss. -Supportive [place] - am going to check KUB, he is quite distended and tympanic, rule out partial obstructive process. (2) Positive occult stool blood test: Code(s): R19.5 - Other fecal abnormalities Status: Acute Assessment and Plan: No obvious GI blood loss at this time Monitor s/s of active bleeding Colonoscopy and EGD prior to d/c (3) Normocytic anemia: Code(s): D64.9 - Anemia, unspecified Status: Acute Assessment and Plan: Acute anemia noted that is normocytic Recommend iron studies assess for RICARDO Positive occult stool GI blood loss to be excluded Likely will need colonoscopy for colitis as well and will add EGD at the time. Consider on Friday (4) Chronic alcohol use: Code(s): F10.90 - Alcohol use, unspecified, uncomplicated Status: Acute Assessment and Plan: recommend monitor s/s of withdrawal was drinking fifth of liquior daily x 1 year MVI, thiamine and folic acid recommended (5) Hepatic steatosis: Code(s): K76.0 - Fatty (change of) liver, not elsewhere classified Status: Acute Assessment and Plan: Likely due to chronic alcohol abuse and Obesity has been drinking 1/5 alcohol per day x 1 year LFTs now normal but platelets are low and decreasing Monitor LFTs, recommend hepatitis Panel He could have underlying cirrhosis (6) Obesity, morbid, BMI 50 or higher: Code(s): E66.01 - Morbid (severe) obesity due to excess calories Status: Acute (7) Hypertension: Code(s): I10 - Essential (primary) hypertension Status: Acute (8) Physical deconditioning: Code(s): R53.81 - Other malaise Status: Acute (9) Gluteal abscess: Code(s): L02.31 - Cutaneous abscess of buttock Status: Acute Assessment and Plan: Chronic; Acute exacerbation General surgery consulted (10) Obstructive sleep apnea: Code(s): G47.33 - Obstructive sleep apnea (adult) (pediatric) Sta
--- NOTE | 2024-02-04 13:31 | WPDGICN ---
Assessment and Plan Assessment and plan (1) Colitis: Code(s): K52.9 - Noninfective gastroenteritis and colitis, unspecified Status: Acute Assessment and Plan: -Found to have possible mild pericolonic inflammatory change about the cecum and ascending colon that is nonspecific. --- been having diarrhea but only one time per day. Infectious, inflammatory, less likely ischemic, malignancy should be excluded -He is on Zosyn which we will continue. - get CRP and ESR along with stool culture and C diff. -He will eventually need a colonoscopy to assess the site to rule out underlying malignancy, IBD, and GI blood loss. -Supportive [place] - am going to check KUB, he is quite distended and tympanic, rule out partial obstructive process. (2) Positive occult stool blood test: Code(s): R19.5 - Other fecal abnormalities Status: Acute Assessment and Plan: No obvious GI blood loss at this time Monitor s/s of active bleeding Colonoscopy and EGD prior to d/c (3) Normocytic anemia: Code(s): D64.9 - Anemia, unspecified Status: Acute Assessment and Plan: Acute anemia noted that is normocytic Recommend iron studies assess for RICARDO Positive occult stool GI blood loss to be excluded Likely will need colonoscopy for colitis as well and will add EGD at the time. Consider on Friday (4) Chronic alcohol use: Code(s): F10.90 - Alcohol use, unspecified, uncomplicated Status: Acute Assessment and Plan: recommend monitor s/s of withdrawal was drinking fifth of liquior daily x 1 year MVI, thiamine and folic acid recommended (5) Hepatic steatosis: Code(s): K76.0 - Fatty (change of) liver, not elsewhere classified Status: Acute Assessment and Plan: Likely due to chronic alcohol abuse and Obesity has been drinking 1/5 alcohol per day x 1 year LFTs now normal but platelets are low and decreasing Monitor LFTs, recommend hepatitis Panel He could have underlying cirrhosis (6) Obesity, morbid, BMI 50 or higher: Code(s): E66.01 - Morbid (severe) obesity due to excess calories Status: Acute (7) Hypertension: Code(s): I10 - Essential (primary) hypertension Status: Acute (8) Physical deconditioning: Code(s): R53.81 - Other malaise Status: Acute (9) Gluteal abscess: Code(s): L02.31 - Cutaneous abscess of buttock Status: Acute Assessment and Plan: Chronic; Acute exacerbation General surgery consulted (10) Obstructive sleep apnea: Code(s): G47.33 - Obstructive sleep apnea (adult) (pediatric) Status: Acute (11) Thrombocytopenia: Code(s): D69.6 - Thrombocytopenia, unspecified Status: Acute Assessment and Plan: Platelets low, and trending down Work up per hospitalist consider US of liver GI Consult Note Consult date/time: 02/04/24 13:00 Reason for consult: Anemia and positive occult stool. HPI: Reji Vasquez is a 68 year old male asked to be seen at the request of the hospitalist for anemia and positive occult stool. PMH diverticulitis, colon polyps, obesity, COPD, sleep apnea, and he tells me CHF. NO GI surgeries. He was admitted for for physical deconditioning, and colitis. He presented to the hospital for abdominal pain, feeling weak and nauseous. He states over the last 1 month he has had generalized all over abdominal pain described as cramping along with nausea, postprandial vomiting and no appetite. Reports a dry mouth. Denies any dysphagia, odynophagia or GERD. He states he has not been able to eat as he immediately will vomit. He also feels like he has been having generalized abdominal distension. He is unsure about his weight. He has been having shortness of breath and feeling weak which this has been ongoing for about 1 year. He states he has 1 bowel movement per day that is diarrhea and empties out well. He has had a wound on his buttocks x 1 year. Denies seein
[2024-02-04 13:41] LABS: CRP 7.6 mg/dL (<1.0)
[2024-02-04 13:52] LABS: Erythrocyte Sedimentation Rate 109 mm/hr (0-20)
--- NOTE | 2024-02-04 14:54 | PCPTNOTE ---
Patient refused treatment this session due to patient wanting to rest at this time. Educated patient on the importance of participating with therapy. Patient continued to refuse.
[2024-02-04] MEDS: ALPRAZolam (*CRX) 0.25 MG TABLET PO (18:33)
[2024-02-05] VITALS (8 sets, daily range): BP systolic 114–127; BP diastolic 49–71; PULSE 60–87; RESP 16–20; TEMP 36.6–37.1; O2SAT 93–98
[2024-02-05] MEDS: PIPERACILLN/TAZ 3.375GM/NS50ML 3.375 GM/50 ML BAG IVPB ×2 (00:15→05:02)
[2024-02-05 06:05] LABS: Basophils Percent Auto 0.4 % (0.2-1.2); Eosinophils Absolute Auto 0.1 K/mm3 (0-0.3); Eosinophils Percent Auto 1.3 % (0-4.4); Hematocrit 22.7 % (42.0-52.0); Hemoglobin 7.3 g/dL (14.0-18.0); Immature Granulocyte Absolute 0.18 K/mm3 (0.00-0.031); Immature Granulocyte Percent A 3.3 % (0-0.5); Immature Platelet Fraction Pct 7.9 % (0.9-11.2); Lymphocytes Absolute Auto 1.03 K/mm3 (0.9-3.2); Lymphocytes Percent Auto 18.7 % (18.3-44.2); Mean Corpuscular HGB Conc 32.2 g/dl (32-36); Mean Corpuscular Hemoglobin 29.8 pg (26-34); Mean Corpuscular Volume 92.7 fl (80-100); Monocytes Absolute Auto 0.4 K/mm3 (0.1-0.6); Monocytes Percent Auto 7.8 % (2.6-8.5); Neutrophils Absolute Auto 3.8 K/mm3 (1.3-6.7); Neutrophils Percent Auto 68.5 % (45.5-73.1); Platelet Count Result 109 k/mm3 (150-375); Red Blood Count 2.45 M/mm3 (4.6-6.20); Red Cell Distribution Width 15.9 % (11.5-14.5); White Blood Count 5.5 K/mm3 (4.5-10.0)
[2024-02-05 06:26] LABS: Anion Gap 3 mmol/L (8-16); Blood Urea Nitrogen 23 mg/dL (9-20); Calcium 7.7 mg/dL (8.4-10.2); Carbon Dioxide 37 mmol/L (22-30); Chloride 91 mmol/L (98-107); Estimated CRCL calculation 97 ml/min; Estimated Glomerular Filt Rate > 60; Glucose 115 mg/dL (65-110); Potassium 3.2 mmol/L (3.4-5.0); Sodium 131 mmol/L (137-145)
[2024-02-05 06:56] LABS: HIV 1/2 Ab P24 Ag Result Negative (Negative)
[2024-02-05] MEDS: THIAMINE HCL 200 MG/2 ML VIAL 100 MG IV PUSH (08:55)
[2024-02-05] MEDS: POTASSIUM CHLORIDE 20 MEQ PACKET (FOR LIQUID) 40 MEQ PO ×2 (08:55→16:15)
[2024-02-05] MEDS: PANTOPRAZOLE SODIUM IV 40 MG VIAL IV PUSH ×2 (08:55→20:13)
[2024-02-05] MEDS: TOLNAFTATE 1% POWDER 45 GM BTL 1 APPLIC TOPICAL ×2 (08:57→20:14)
[2024-02-05 09:02] LABS: Toxigenic C. Diff NEGATIVE (NEGATIVE)
[2024-02-05 09:24] LABS: Hepatitis B Surface Antigen Negative (Negative)
[2024-02-05 09:30] LABS: HAV RESULT Negative (Negative); Hepatitis B Core IgM Result Negative (Negative)
[2024-02-05 10:04] LABS: Hepatitis C Virus Antibody Reactive (Negative)
[2024-02-05] MEDS: AMOXICILLIN/CLAVULANATE K 875-125 MG TAB 1 TABLET PO ×2 (11:54→20:13)
--- NOTE | 2024-02-05 13:14 | PM.IMPN ---
Progress Note: A&P Assessment and Plan (1) Colitis: Code(s): K52.9 - Noninfective gastroenteritis and colitis, unspecified Status: Acute (2) Acute hypokalemia: Code(s): E87.6 - Hypokalemia Status: Acute (3) Obesity, morbid, BMI 50 or higher: Code(s): E66.01 - Morbid (severe) obesity due to excess calories Status: Acute (4) Hypertension: Code(s): I10 - Essential (primary) hypertension Status: Acute (5) Chronic pain syndrome: Code(s): G89.4 - Chronic pain syndrome Status: Acute (6) Hyponatremia: Code(s): E87.1 - Hypo-osmolality and hyponatremia Status: Acute (7) Hypophosphatasia: Code(s): E83.39 - Other disorders of phosphorus metabolism Status: Acute (8) Lactic acidemia: Code(s): E87.20 - Acidosis, unspecified Status: Acute (9) Physical deconditioning: Code(s): R53.81 - Other malaise Status: Acute (10) Gluteal abscess: Code(s): L02.31 - Cutaneous abscess of buttock Status: Acute (11) Obstructive sleep apnea: Code(s): G47.33 - Obstructive sleep apnea (adult) (pediatric) Status: Acute (12) Hepatic steatosis: Code(s): K76.0 - Fatty (change of) liver, not elsewhere classified Status: Acute (13) Elevated bilirubin: Code(s): R17 - Unspecified jaundice Status: Acute (14) Normocytic anemia: Code(s): D64.9 - Anemia, unspecified Status: Acute Plan 68-year-old male with past medical history significant for obesity, obstructive sleep apnea, hypertension, asthma presented with abdominal pain, CT abdomen and pelvis showed mild pericolic inflammatory change about the cecum/ascending colon, nonspecific. Diffuse hepatic steatosis along with small right pleural effusion. 1. Abdominal pain: Possible colitis Tolerating liquid diet Will discontinue Zosyn, will start on Augmentin to finish the course 2. Hypokalemia: Supplement potassium 3. Cutaneous abscess of the gluteal region: Appreciate surgery help Local wound care 4. Anemia: Slowly dropping H&H Fecal occult blood positive Obtain iron panel, vitamin B12, folate, LDH, haptoglobin Continue with PPI b.i.d. Appreciate GI consult Hold DVT prophylaxis/Lovenox DC Toradol Will transfuse for hemoglobin less than 7 Acute hepatitis panel negative, HIV negative 5. Hyperglycemia: Noted hyperglycemia/marginally elevated blood sugar on morning labs Await hemoglobin A1c 6. Due to prophylaxis: SCDs, Lovenox on hold as mentioned above, noted thrombocytopenia(better today) 7. Code status: Full 8. Disposition: Pending improvement Time Spent With Patient Time with patient: 15 - 25 minutes Subjective Date/time seen: 02/05/24 13:14 Interval history: No acute events overnight Review of Systems Constitutional: Constitutional: Reports fatigue and Reports lethargy Eyes: Eyes: Reports no additional eye complaints ENT: Reports Normal hearing present, Denies dysphagia, Denies epistaxis and Denies nasal congestion Cardiovascular: Cardiovascular: Reports leg edema, Denies lightheadedness, Denies palpitations, Reports dyspnea and Reports dyspnea on exertion Respiratory: Respiratory: Reports dyspnea and Reports dyspnea on exertion Gastrointestinal: Gastrointestinal: Reports bloating, Denies dysphagia, Denies diarrhea and Denies nausea Genitourinary: Genitourinary: Denies urinary hesitancy, Denies urinary incontinence and Denies urinary urgency Musculoskeletal: Musculoskeletal: Reports abnormal gait, Reports myalgias and Denies joint swelling Integumentary/Breasts: Skin/Breast: Reports dry skin and Reports wounds (Right buttocks) Neurologic: Reports system reviewed and no additional complaints, except as documented, Reports Normal hearing present, Reports abnormal gait and Denies confusion Psychiatric: Psychiatric: Reports no additional psychiatric complaints and Denies confusion End
--- NOTE | 2024-02-05 15:38 | WPDGIPROGNO ---
Progress Note: A&P Assessment and Plan (1) Positive occult stool blood test: Code(s): R19.5 - Other fecal abnormalities Status: Acute Assessment and Plan: hgb low but stable no overt gib probably egd and colonoscopy early next week, he is slowly feeling better we will assess if changes of portal hypertension (noted low platelets with low albumin, h/o alcohol use ? liver disease), pud, also check if colitis, etc (2) Thrombocytopenia: Code(s): D69.6 - Thrombocytopenia, unspecified Status: Acute Assessment and Plan: wonder if could have liver disease get liver ultrasound hepatitis panel/hiv negative (3) Chronic alcohol use: Code(s): F10.90 - Alcohol use, unspecified, uncomplicated Status: Acute (4) Colitis: Code(s): K52.9 - Noninfective gastroenteritis and colitis, unspecified Status: Acute Assessment and Plan: on abx probably colonoscopy Friday c diff negative other stool cx pending ok to advance diet (5) Acute on chronic anemia: Code(s): D64.9 - Anemia, unspecified Status: Acute (6) Hepatic steatosis: Code(s): K76.0 - Fatty (change of) liver, not elsewhere classified Status: Acute Assessment and Plan: ? cirrhosis get liver ultrasound will assess with egd to see if any changes (7) Gluteal abscess: Code(s): L02.31 - Cutaneous abscess of buttock Status: Acute Assessment and Plan: already drained (8) Physical deconditioning: Code(s): R53.81 - Other malaise Status: Acute (9) Obesity, morbid, BMI 50 or higher: Code(s): E66.01 - Morbid (severe) obesity due to excess calories Status: Acute Subjective Date/time seen: 02/05/24 15:38 Interval history: he is better, he is hungry and less abdominal pain, still with diarrhea. Review of Systems Review of Systems: All systems reviewed & are unremarkable except as noted in HPI and below Exam Const: General: no acute distress; No confusion HENMT: Ears: TM's normal bilaterally Eyes: General: appearance normal, both eyes and all related structures Pupils: Equal, round and reactive pupils present Neck: Neck: supple Resp: Auscultation: rhonchi and diminished lung sounds bilateral Cardio: Rate: regular rate Rhythm: regular rhythm GI: GI Palp: Yes Soft to palpation and No Tenderness to palpation present (GI) Auscultation: normal bowel sounds : Male General Exam: Yes normal external exam (inverted penis) Skin: General skin exam: lesion and wounds noted (Gluteal region) Wounds: wounds noted (Gluteal region) Neuro: General: No confusion Cranial nerves: Yes Equal, round and reactive pupils present and Yes Normal hearing present Speech: normal speech Motor exam (neuro): Normal motor muscle tone present throughout Extrem: General: edema Psych: Mental Status: mental status grossly normal Objective Data Vital Signs Vital Signs: Vital Signs - 24 hr 02/04/24 16:00 02/04/24 20:00 02/04/24 21:58 Temperature 97.7 F Pulse Rate 80 76 Respiratory Rate 16 Blood Pressure 97/56 L Pulse Oximetry 98 Oxygen Delivery Room Air 02/04/24 20:00 02/05/24 00:00 02/05/24 04:00 Temperature Pulse Rate 88 77 81 Respiratory Rate Blood Pressure Pulse Oximetry Oxygen Delivery 02/05/24 05:05 02/05/24 08:00 02/05/24 09:00 Temperature 97.8 F Pulse Rate 60 79 Respiratory Rate 16 Blood Pressure 114/70 Pulse Oximetry 93 95 Oxygen Delivery Room Air 02/05/24 08:57 02/05/24 14:29 Temperature 98.3 F Pulse Rate 87 Respiratory Rate 16 16 Blood Pressure 121/71 Pulse Oximetry 95 98 Oxygen Delivery Room Air Intake/Output Intake/Output: Intake & Output 02/02/24 02/03/24 02/04/24 02/05/24 23:59 23:59 23:59 23:59 Intake Total 2656.7 3236.7 970 740 Output Total 925 600 500 500 Balance 1731.7 2636.7 470 240 Meds/Results Medications: Active Medications Generic
[2024-02-05] MEDS: ACETAMINOPHEN 325 MG TABLET 650 MG PO (17:07)
[2024-02-05] MEDS: ALPRAZolam (*CRX) 0.25 MG TABLET PO (17:48)
[2024-02-06 03:42] VITALS: BP 124/51; PULSE 83; RESP 20; TEMP 36.3; O2SAT 96
[2024-02-06 06:00] LABS: Basophils Percent Auto 0.5 % (0.2-1.2); Eosinophils Absolute Auto 0.1 K/mm3 (0-0.3); Eosinophils Percent Auto 0.8 % (0-4.4); Hematocrit 23.8 % (42.0-52.0); Hemoglobin 7.4 g/dL (14.0-18.0); Immature Granulocyte Absolute 0.21 K/mm3 (0.00-0.031); Immature Granulocyte Percent A 3.5 % (0-0.5); Lymphocytes Absolute Auto 1.21 K/mm3 (0.9-3.2); Lymphocytes Percent Auto 20.2 % (18.3-44.2); Mean Corpuscular HGB Conc 31.1 g/dl (32-36); Mean Corpuscular Hemoglobin 28.4 pg (26-34); Mean Corpuscular Volume 91.2 fl (80-100); Mean Platelet Volume 10.2 fl (7.4-10.4); Monocytes Absolute Auto 0.5 K/mm3 (0.1-0.6); Neutrophils Absolute Auto 3.9 K/mm3 (1.3-6.7); Nucleated Red Blood Cells Perc 0.3 % (0.0-0.2); Platelet Count Result 108 k/mm3 (150-375); Red Blood Count 2.61 M/mm3 (4.6-6.20); Red Cell Distribution Width 15.8 % (11.5-14.5)
[2024-02-06 06:22] LABS: Anion Gap 0 mmol/L (8-16); Blood Urea Nitrogen 17 mg/dL (9-20); Calcium 8.2 mg/dL (8.4-10.2); Carbon Dioxide 39 mmol/L (22-30); Chloride 96 mmol/L (98-107); Estimated CRCL calculation 117 ml/min; Estimated Glomerular Filt Rate > 60; Glucose 108 mg/dL (65-110); Potassium 3.3 mmol/L (3.4-5.0); Sodium 135 mmol/L (137-145)
[2024-02-06 07:50] VITALS: RESP 20; O2SAT 96
[2024-02-06 08:43] LABS: Iron 158 ug/dL (49-181)
[2024-02-06] MEDS: AMOXICILLIN/CLAVULANATE K 875-125 MG TAB 1 TABLET PO ×2 (08:50→20:38)
[2024-02-06] MEDS: THIAMINE HCL 200 MG/2 ML VIAL 100 MG IV PUSH (08:50)
[2024-02-06] MEDS: PANTOPRAZOLE SODIUM IV 40 MG VIAL IV PUSH ×2 (08:50→20:38)
[2024-02-06] MEDS: TOLNAFTATE 1% POWDER 45 GM BTL 1 APPLIC TOPICAL ×2 (08:51→20:38)
[2024-02-06 09:03] LABS: Lactate Dehydrogenase 207 U/L (120-246)
[2024-02-06 10:27] LABS: Folic Acid 4.7 ng/mL (2.76->20)
[2024-02-06 10:39] LABS: Hemoglobin A1C 7.1 % (<5.7)
[2024-02-06 11:03] LABS: Percent Iron Saturation 87 % (20-50)
[2024-02-06 11:59] LABS: Ferritin > 2000.00 ng/mL (11.1-264)
[2024-02-06] MEDS: ALPRAZolam (*CRX) 0.25 MG TABLET PO (13:12)
[2024-02-06] MEDS: ACETAMINOPHEN 325 MG TABLET 650 MG PO (13:12)
[2024-02-06 14:00] VITALS: BP 110/59; PULSE 79; RESP 18; TEMP 35.6; O2SAT 97
--- NOTE | 2024-02-06 16:21 | WPDGIPROGNO ---
Progress Note: A&P Assessment and Plan (1) Positive occult stool blood test: Code(s): R19.5 - Other fecal abnormalities Status: Acute Assessment and Plan: hgb low but stable no overt gib probably egd and colonoscopy early next week, he is slowly feeling better we will assess if changes of portal hypertension (noted low platelets with low albumin, h/o alcohol use ? liver disease), pud, also check if colitis, etc (2) Thrombocytopenia: Code(s): D69.6 - Thrombocytopenia, unspecified Status: Acute Assessment and Plan: wonder if could have liver disease liver ultrasound showed fatty liver, wonder if could have cirrhosis based on blood work hepatitis panel/hiv negative (3) Chronic alcohol use: Code(s): F10.90 - Alcohol use, unspecified, uncomplicated Status: Acute (4) Colitis: Code(s): K52.9 - Noninfective gastroenteritis and colitis, unspecified Status: Acute Assessment and Plan: on abx probably colonoscopy Friday c diff negative and stool cultures no growth eating about 50% meals (5) Acute on chronic anemia: Code(s): D64.9 - Anemia, unspecified Status: Acute (6) Hepatic steatosis: Code(s): K76.0 - Fatty (change of) liver, not elsewhere classified Status: Acute Assessment and Plan: ? cirrhosis will assess with egd to see if any changes (7) Gluteal abscess: Code(s): L02.31 - Cutaneous abscess of buttock Status: Acute Assessment and Plan: already drained (8) Physical deconditioning: Code(s): R53.81 - Other malaise Status: Acute (9) Obesity, morbid, BMI 50 or higher: Code(s): E66.01 - Morbid (severe) obesity due to excess calories Status: Acute Subjective Date/time seen: 02/06/24 16:21 Interval history: still with diarrhea, c/o pain in buttock area Review of Systems Review of Systems: All systems reviewed & are unremarkable except as noted in HPI and below Exam Const: General: no acute distress; No confusion Other: obese, chronically ill appearing family member at bedside HENMT: Ears: TM's normal bilaterally Eyes: General: appearance normal, both eyes and all related structures Neck: Neck: supple Resp: Auscultation: diminished lung sounds bilateral Cardio: Rate: regular rate Rhythm: regular rhythm GI: GI Palp: Yes Soft to palpation and No Tenderness to palpation present (GI) Auscultation: normal bowel sounds Other: obese : Male General Exam: Yes normal external exam (inverted penis) Skin: General skin exam: lesion and wounds noted (Gluteal region) Wounds: wounds noted (Gluteal region) Neuro: General: No confusion Cranial nerves: Yes Equal, round and reactive pupils present and Yes Normal hearing present Speech: normal speech Motor exam (neuro): Normal motor muscle tone present throughout Extrem: General: edema Other: chronic venous stasis legs Psych: Mental Status: mental status grossly normal Objective Data Vital Signs Vital Signs: Vital Signs - 24 hr 02/05/24 20:00 02/05/24 20:21 02/06/24 03:42 Temperature 98.7 F 97.3 F L Pulse Rate 84 83 Respiratory Rate 20 20 Blood Pressure 127/49 L 124/51 L Pulse Oximetry 96 96 Oxygen Delivery Room Air 02/06/24 07:50 02/06/24 14:00 Temperature 96.0 F L Pulse Rate 79 Respiratory Rate 20 18 Blood Pressure 110/59 L Pulse Oximetry 96 97 Oxygen Delivery Room Air Intake/Output Intake/Output: Intake & Output 02/03/24 02/04/24 02/05/24 02/06/24 23:59 23:59 23:59 23:59 Intake Total 3236.7 970 980 360 Output Total 237 965 6271 300 Balance 2636.7 470 -120 60 Meds/Results Medications: Active Medications Generic Name Dose Route Start Last Admin Trade Name Freq PRN Reason Stop Dose Admin Acetaminophen 650 mg 02/02/24 10:34 02/06/24 13:12 Acetaminophen 325 Mg Tablet PO 650 mg Q4H PRN Administration Mild Pain (1-3) or Fever
--- NOTE | 2024-02-06 17:09 | PM.IMPN ---
Progress Note: A&P Assessment and Plan (1) Positive occult stool blood test: Code(s): R19.5 - Other fecal abnormalities Status: Acute (2) Chronic alcohol use: Code(s): F10.90 - Alcohol use, unspecified, uncomplicated Status: Acute (3) Thrombocytopenia: Code(s): D69.6 - Thrombocytopenia, unspecified Status: Acute (4) Hepatic steatosis: Code(s): K76.0 - Fatty (change of) liver, not elsewhere classified Status: Acute (5) Acute hypokalemia: Code(s): E87.6 - Hypokalemia Status: Acute (6) Gluteal abscess: Code(s): L02.31 - Cutaneous abscess of buttock Status: Acute (7) Obstructive sleep apnea: Code(s): G47.33 - Obstructive sleep apnea (adult) (pediatric) Status: Acute (8) Normocytic anemia: Code(s): D64.9 - Anemia, unspecified Status: Acute (9) Colitis: Code(s): K52.9 - Noninfective gastroenteritis and colitis, unspecified Status: Acute Plan 68-year-old male with past medical history significant for obesity, obstructive sleep apnea, hypertension, asthma presented with abdominal pain, CT abdomen and pelvis showed mild pericolic inflammatory change about the cecum/ascending colon, nonspecific.? Diffuse hepatic steatosis along with small right pleural effusion. Assuming care on 02/06/2024. Again replacing potassium. Recheck potassium and magnesium. Continue Augmentin for resolving gluteal abscess. Abdominal pain is greatly improved. Plan is for an endoscopy on Friday with GI. Monitor hemoglobin and transfuse if less than 7. Hepatitis and HIV panel negative. Likely has cirrhosis. Would benefit from MRI on Friday as well. Hold off on DVT prophylaxis. SCDs only. Hemoglobin A1c 7.1 although can be elevated due to the anemia. Will recheck this as an outpatient. Full code. Stable. 1. Abdominal pain: Possible colitis Tolerating liquid diet Will discontinue Zosyn, will start on Augmentin to finish the course 2. Hypokalemia: Supplement potassium 3. Cutaneous abscess of the gluteal region: Appreciate surgery help Local wound care 4. Anemia: Slowly dropping H&H Fecal occult blood positive Obtain iron panel, vitamin B12, folate, LDH, haptoglobin Continue with PPI b.i.d. Appreciate GI consult Hold DVT prophylaxis/Lovenox DC Toradol Will transfuse for hemoglobin less than 7 Acute hepatitis panel negative, HIV negative 5. Hyperglycemia: Noted hyperglycemia/marginally elevated blood sugar on morning labs Await hemoglobin A1c 6. Due to prophylaxis:? SCDs, Lovenox on hold as mentioned above, noted thrombocytopenia(better today) 7. Code status:? Full 8. Disposition: Pending improvement Subjective Date/time seen: 02/06/24 17:09 Interval history: No acute overnight events Review of Systems Review of Systems: All systems reviewed & are unremarkable except as noted in HPI and below (Subjective) Exam Const: General: comfortable and no acute distress Other: Morbidly obese Neck: Neck: supple Resp: Effort & Inspection: normal respiratory effort Other: Difficult to auscultate due to body habitus Cardio: Rate: regular rate Rhythm: regular rhythm GI: GI Palp: Yes Soft to palpation Other: Large abdominal pannus Extrem: General: no edema Objective Data Vital Signs Vital Signs: Vital Signs - 24 hr 02/05/24 20:00 02/05/24 20:21 02/06/24 03:42 Temperature 98.7 F 97.3 F L Pulse Rate 84 83 Respiratory Rate 20 20 Blood Pressure 127/49 L 124/51 L Pulse Oximetry 96 96 Oxygen Delivery Room Air 02/06/24 07:50 02/06/24 14:00 Temperature 96.0 F L Pulse Rate 79 Respiratory Rate 20 18 Blood Pressure 110/59 L Pulse Oximetry 96 97 Oxygen Delivery Room Air Intake/Output Intake/Output: Intake & Output 02/03/24 02/04/24 02/05/24 02/06/24 23:59 23:59 23:59 23:59 Intake Total 3236.7 970 980 360 Output Total 614 899 3645 300 Balance 2636.7 470 -12
[2024-02-06] MEDS: POTASSIUM CHLORIDE 20 MEQ ER TABLET PO (17:42)
[2024-02-06 20:20] VITALS: PULSE 78
[2024-02-06] MEDS: LORazepam INJ (*CRX) 2 MG/ML VIAL IV PUSH (20:38)
[2024-02-06 21:35] VITALS: BP 120/52; PULSE 86; RESP 20; TEMP 36.2; O2SAT 94
[2024-02-07] VITALS (11 sets, daily range): BP systolic 109–139; BP diastolic 59–79; PULSE 80–96; RESP 16–20; TEMP 36.1–36.8; O2SAT 95–100
[2024-02-07 05:52] LABS: Basophils Percent Auto 0.3 % (0.2-1.2); Eosinophils Absolute Auto 0.1 K/mm3 (0-0.3); Eosinophils Percent Auto 1.6 % (0-4.4); Hematocrit 23.1 % (42.0-52.0); Immature Granulocyte Absolute 0.27 K/mm3 (0.00-0.031); Immature Granulocyte Percent A 4.3 % (0-0.5); Lymphocytes Absolute Auto 1.21 K/mm3 (0.9-3.2); Lymphocytes Percent Auto 19.3 % (18.3-44.2); Mean Corpuscular HGB Conc 30.7 g/dl (32-36); Mean Corpuscular Hemoglobin 29.7 pg (26-34); Mean Corpuscular Volume 96.7 fl (80-100); Mean Platelet Volume 10.2 fl (7.4-10.4); Monocytes Absolute Auto 0.6 K/mm3 (0.1-0.6); Monocytes Percent Auto 9.6 % (2.6-8.5); Neutrophils Absolute Auto 4.1 K/mm3 (1.3-6.7); Neutrophils Percent Auto 64.9 % (45.5-73.1); Nucleated Red Blood Cells Perc 0.8 % (0.0-0.2); Platelet Count Result 110 k/mm3 (150-375); Red Blood Count 2.39 M/mm3 (4.6-6.20); Red Cell Distribution Width 16.3 % (11.5-14.5); White Blood Count 6.3 K/mm3 (4.5-10.0)
[2024-02-07 06:08] LABS: Alanine Aminotransferase 17 U/L (6-50); Albumin Level 2.6 g/dL (3.5-5.1); Alkaline Phosphatase 85 U/L (38-126); Anion Gap 0 mmol/L (8-16); Aspartate Amino Transferase 53 U/L (17-59); Bilirubin,Total 1.1 mg/dL (0.2-1.3); Blood Urea Nitrogen 14 mg/dL (9-20); Calcium 8.1 mg/dL (8.4-10.2); Carbon Dioxide 32 mmol/L (22-30); Chloride 101 mmol/L (98-107); Estimated CRCL calculation 131 ml/min; Estimated Glomerular Filt Rate > 60; Glucose 101 mg/dL (65-110); Potassium 3.9 mmol/L (3.4-5.0); Sodium 133 mmol/L (137-145)
[2024-02-07 06:16] LABS: Hemoglobin 7.1 g/dL (14.0-18.0)
[2024-02-07] MEDS: PANTOPRAZOLE SODIUM IV 40 MG VIAL IV PUSH ×2 (08:41→21:16)
[2024-02-07] MEDS: FOLIC ACID 1 MG TABLET PO (08:41)
[2024-02-07] MEDS: AMOXICILLIN/CLAVULANATE K 875-125 MG TAB 1 TABLET PO ×2 (08:41→21:15)
[2024-02-07] MEDS: THIAMINE HCL 200 MG/2 ML VIAL 100 MG IV PUSH (08:42)
[2024-02-07] MEDS: TOLNAFTATE 1% POWDER 45 GM BTL 1 APPLIC TOPICAL ×2 (08:42→21:15)
[2024-02-07] MEDS: ALPRAZolam (*CRX) 0.25 MG TABLET PO ×2 (12:55→23:27)
--- NOTE | 2024-02-07 13:00 | WPDGIPROGNO ---
Progress Note: A&P Assessment and Plan (1) Positive occult stool blood test: Code(s): R19.5 - Other fecal abnormalities Status: Acute Assessment and Plan: hgb low but stable no overt gib egd and colonoscopy Friday we will assess if changes of portal hypertension (noted low platelets with low albumin, h/o alcohol use ? liver disease), pud, also check if colitis, etc (2) Thrombocytopenia: Code(s): D69.6 - Thrombocytopenia, unspecified Status: Acute Assessment and Plan: liver ultrasound showed fatty liver, wonder if could have cirrhosis based on blood work hepatitis panel/hiv negative (3) Chronic alcohol use: Code(s): F10.90 - Alcohol use, unspecified, uncomplicated Status: Acute (4) Colitis: Code(s): K52.9 - Noninfective gastroenteritis and colitis, unspecified Status: Acute Assessment and Plan: on abx colonoscopy Friday c diff negative and stool cultures no growth he is tolerating diet (5) Acute on chronic anemia: Code(s): D64.9 - Anemia, unspecified Status: Acute Assessment and Plan: hgb stable (6) Hepatic steatosis: Code(s): K76.0 - Fatty (change of) liver, not elsewhere classified Status: Acute Assessment and Plan: ? cirrhosis will assess with egd to see if any changes (7) Gluteal abscess: Code(s): L02.31 - Cutaneous abscess of buttock Status: Acute Assessment and Plan: already drained (8) Physical deconditioning: Code(s): R53.81 - Other malaise Status: Acute (9) Obesity, morbid, BMI 50 or higher: Code(s): E66.01 - Morbid (severe) obesity due to excess calories Status: Acute Subjective Date/time seen: 02/07/24 13:00 Interval history: no major changes, same diarrhea, he is eating Review of Systems Review of Systems: All systems reviewed & are unremarkable except as noted in HPI and below Exam Const: General: no acute distress; No confusion Other: obese, chronically ill appearing family member at bedside HENMT: Ears: TM's normal bilaterally Eyes: General: appearance normal, both eyes and all related structures Neck: Neck: supple Resp: Auscultation: diminished lung sounds bilateral Cardio: Rate: regular rate Rhythm: regular rhythm GI: GI Palp: Yes Soft to palpation and No Tenderness to palpation present (GI) Auscultation: normal bowel sounds Other: obese : Male General Exam: Yes normal external exam (inverted penis) Skin: General skin exam: lesion and wounds noted (Gluteal region) Wounds: wounds noted (Gluteal region) Neuro: General: No confusion Cranial nerves: Yes Equal, round and reactive pupils present and Yes Normal hearing present Speech: normal speech Motor exam (neuro): Normal motor muscle tone present throughout Extrem: General: edema Other: chronic venous stasis legs Psych: Mental Status: mental status grossly normal Objective Data Vital Signs Vital Signs: Vital Signs - 24 hr 02/06/24 14:00 02/06/24 20:20 02/06/24 21:35 Temperature 96.0 F L 97.1 F L Pulse Rate 79 86 Pulse Rate [Apical] 78 Respiratory Rate 18 20 Blood Pressure 110/59 L 120/52 L Pulse Oximetry 97 94 Oxygen Delivery 02/07/24 03:56 02/07/24 08:00 Temperature 97.9 F Pulse Rate 85 Pulse Rate [Apical] Respiratory Rate 18 Blood Pressure 132/79 Pulse Oximetry 95 Oxygen Delivery Room Air Intake/Output Intake/Output: Intake & Output 02/04/24 02/05/24 02/06/24 02/07/24 23:59 23:59 23:59 23:59 Intake Total 970 980 730 630 Output Total 500 1100 800 Balance 470 -120 -70 630 Meds/Results Medications: Active Medications Generic Name Dose Route Start Last Admin Trade Name Freq PRN Reason Stop Dose Admin Acetaminophen 650 mg 02/02/24 10:34 02/06/24 13:12 Acetaminophen 325 Mg Tablet PO 650 mg Q4H PRN Administration Mild Pain (1-3) or Fever Alprazolam 0.25 mg 01/16
--- NOTE | 2024-02-07 13:15 | PC.NURSE ---
at bedside, patient wanted to get up to chair, was told by charge the aid would be in soon to move him, assisted patient to side of bed setting off alarm was made aware that he is a fall risk and to please call when patient wants up. If getting up without our assistance, it is at their own risk for a fall. alarm set, call light in reach, near nurses station.
--- NOTE | 2024-02-07 14:15 | PM.IMPN ---
Progress Note: A&P Assessment and Plan (1) Positive occult stool blood test: Code(s): R19.5 - Other fecal abnormalities Status: Acute (2) Chronic alcohol use: Code(s): F10.90 - Alcohol use, unspecified, uncomplicated Status: Acute (3) Thrombocytopenia: Code(s): D69.6 - Thrombocytopenia, unspecified Status: Acute (4) Hepatic steatosis: Code(s): K76.0 - Fatty (change of) liver, not elsewhere classified Status: Acute (5) Acute hypokalemia: Code(s): E87.6 - Hypokalemia Status: Acute (6) Gluteal abscess: Code(s): L02.31 - Cutaneous abscess of buttock Status: Acute (7) Obstructive sleep apnea: Code(s): G47.33 - Obstructive sleep apnea (adult) (pediatric) Status: Acute (8) Normocytic anemia: Code(s): D64.9 - Anemia, unspecified Status: Acute (9) Colitis: Code(s): K52.9 - Noninfective gastroenteritis and colitis, unspecified Status: Acute Plan 68-year-old male with a past medical history morbid obesity, ELIA noncompliant with CPAP, hypertension, asthma/COPD, chronic anemia, active smoker, alcohol abuse presents with complaint of abdominal pain. CT abdomen pelvis demonstrated mild pericolic inflammatory change above the cecum/ascending colon which is nonspecific. Patient admitted for further eval and workup on 02/01. Colitis -diarrhea persists. Continue diet as tolerated. Plan for endoscopy on Friday with GI. -Zosyn has been switched to Augmentin p.o. Hepatomegaly, suspected alcoholic liver disease -HIV 4th generation antibody negative. Hepatitis-C antibody positive. This test has a high false-positive rate so we will follow-up on the viral load. -abdominal ultrasound demonstrating diffuse fatty infiltration of the liver with associated hepatomegaly. Considering his alcoholism and pancytopenia he likely has alcoholic liver disease. He has been heavily counseled on this and he reports he will stop drinking. Should be following up with his PCP and or iv technician on this. Acute hypokalemia -Resolved Cutaneous abscess of the gluteal region -Already expressed. Continue to monitor with local wound care. Hyperglycemia -hemoglobin A1c 7.1%. T this can be elevated with anemia and his anemia is severe. Repeat HbA1c as outpatient Chronic anemia -stool occult positive. Hemoglobin 7.1 on 02/06. Patient amenable to receiving 1 unit PRBC. Giving now. Endoscopies on Friday with GI -iron studies suggestive of chronic inflammatory process. This is likely due to his alcoholism Thrombocytopenia -likely due to alcoholism. Continue to monitor. Avoid anticoagulants History of ELIA noncompliant with CPAP -educated and counseled. History of hypertension -at goal. Continue to monitor Prolonged QTC -takes amitriptyline at home. Hold that. Continue ondansetron and recheck EKG in the morning. Patient on telemetry Asthma/COPD -patient has a slight wheeze. He reports using a new albuterol nebulizer at home every day twice a day. Continue his home dose montelukast and Trelegy. DuTranbs p.r.n.. FEN: Saline lock IV. Low residue diet GI prophylaxis: Protonix IV DVT prophylaxis: SCDs only Lines: Peripheral IV Code Status: Full code Dispo: Stable on medical floor Subjective Date/time seen: 02/07/24 14:15 Interval history: Complaining of worsening diarrhea when eating. Feels he is slightly short of breath. No abdominal pain. No chest pain. Review of Systems Review of Systems: All systems reviewed & are unremarkable except as noted in HPI and below (Subjective) Exam Const: General: comfortable and no acute distress Other: A&O x3. Morbidly obese. Eyes: Pupils: Equal, round and reactive pupils present Neck: Neck: supple Resp: Effort & Inspection: normal respiratory effort Auscultation: wheezes (Slight expiratory wheeze) Cardio: Rate: regular rate Rhythm: regular rhythm He
[2024-02-07] MEDS: SODIUM CHLORIDE 0.9% IV 250 ML 30 ML IV CONT (17:36)
[2024-02-08] VITALS (13 sets, daily range): BP systolic 102–135; BP diastolic 60–87; PULSE 70–88; RESP 16–20; TEMP 36.6–36.7; O2SAT 94–100
[2024-02-08] MEDS: ONDANSETRON HCL ODT 4 MG TABLET PO (01:10)
--- NOTE | 2024-02-08 05:00 | ECG_ITS ---
Measurements Intervals [place] Rate: 84 P: 93 UT: 198 QRS: -51 QRSD: 153 T: 66 QT: 411 QTc: 488 Interpretive Statements SINUS RHYTHM ATRIAL PREMATURE COMPLEXES RIGHT BUNDLE BRANCH BLOCK LEFT ANTERIOR FASCICULAR BLOCK LOW VOLTAGE- DIFFUSE LEADS BASELINE WANDER- V4-V6 ABNORMAL ECG COMPARED TO ECG 02/02/2024 03:35:47 NO SIGNIFICANT CHANGES Electronically Signed On 02-08-2024 7:49:59 CDT by Jerry Ravi D.O.
[2024-02-08 06:02] LABS: Basophils Percent Auto 0.4 % (0.2-1.2); Eosinophils Absolute Auto 0.1 K/mm3 (0-0.3); Eosinophils Percent Auto 1.9 % (0-4.4); Hematocrit 24.8 % (42.0-52.0); Hemoglobin 7.8 g/dL (14.0-18.0); Immature Granulocyte Absolute 0.39 K/mm3 (0.00-0.031); Immature Granulocyte Percent A 5.4 % (0-0.5); Lymphocytes Absolute Auto 1.39 K/mm3 (0.9-3.2); Lymphocytes Percent Auto 19.3 % (18.3-44.2); Mean Corpuscular HGB Conc 31.5 g/dl (32-36); Mean Corpuscular Hemoglobin 29.3 pg (26-34); Mean Corpuscular Volume 93.2 fl (80-100); Mean Platelet Volume 9.6 fl (7.4-10.4); Monocytes Absolute Auto 0.6 K/mm3 (0.1-0.6); Monocytes Percent Auto 7.8 % (2.6-8.5); Neutrophils Absolute Auto 4.7 K/mm3 (1.3-6.7); Neutrophils Percent Auto 65.2 % (45.5-73.1); Nucleated Red Blood Cells Perc 1.5 % (0.0-0.2); Platelet Count Result 125 k/mm3 (150-375); Red Blood Count 2.66 M/mm3 (4.6-6.20); Red Cell Distribution Width 15.9 % (11.5-14.5); White Blood Count 7.2 K/mm3 (4.5-10.0)
[2024-02-08 06:14] LABS: Anion Gap -3 mmol/L (8-16); Blood Urea Nitrogen 10 mg/dL (9-20); Calcium 8.2 mg/dL (8.4-10.2); Carbon Dioxide 33 mmol/L (22-30); Chloride 104 mmol/L (98-107); Estimated CRCL calculation 131 ml/min; Estimated Glomerular Filt Rate > 60; Glucose 107 mg/dL (65-110); Magnesium 1.9 mg/dL (1.6-2.3); Potassium 3.2 mmol/L (3.4-5.0); Sodium 134 mmol/L (137-145)
[2024-02-08 06:56] LABS: Anisocytosis 1+; Platelet Estimate Slightly Decreased (Adequate)
[2024-02-08 06:57] LABS: Schistocytes None Seen; Target Cells 1+
[2024-02-08] MEDS: PANTOPRAZOLE SODIUM IV 40 MG VIAL IV PUSH ×2 (08:26→20:49)
[2024-02-08] MEDS: FOLIC ACID 1 MG TABLET PO (08:26)
[2024-02-08] MEDS: MONTELUKAST SODIUM 10 MG TABLET BY MOUTH (08:26)
[2024-02-08] MEDS: THIAMINE HCL 200 MG/2 ML VIAL 100 MG IV PUSH (08:26)
[2024-02-08] MEDS: ACETAMINOPHEN 325 MG TABLET 650 MG PO (08:26)
[2024-02-08] MEDS: TOLNAFTATE 1% POWDER 45 GM BTL 1 APPLIC TOPICAL ×2 (08:26→20:51)
[2024-02-08] MEDS: AMOXICILLIN/CLAVULANATE K 875-125 MG TAB 1 TABLET PO ×2 (08:26→20:49)
--- NOTE | 2024-02-08 10:41 | WPDGIPROGNO ---
Progress Note: A&P Assessment and Plan (1) Positive occult stool blood test: Code(s): R19.5 - Other fecal abnormalities Status: Acute Assessment and Plan: hgb low but stable no overt gib egd and colonoscopy tomorrow we will assess if changes of portal hypertension (noted low platelets with low albumin, h/o alcohol use ? liver disease), pud, also check if colitis, etc (2) Thrombocytopenia: Code(s): D69.6 - Thrombocytopenia, unspecified Status: Acute Assessment and Plan: liver ultrasound showed fatty liver, wonder if could have cirrhosis based on blood work hepatitis panel/hiv negative (3) Chronic alcohol use: Code(s): F10.90 - Alcohol use, unspecified, uncomplicated Status: Acute (4) Colitis: Code(s): K52.9 - Noninfective gastroenteritis and colitis, unspecified Status: Acute Assessment and Plan: on abx colonoscopy tomorrow c diff negative and stool cultures no growth he is tolerating diet (5) Acute on chronic anemia: Code(s): D64.9 - Anemia, unspecified Status: Acute Assessment and Plan: hgb stable (6) Hepatic steatosis: Code(s): K76.0 - Fatty (change of) liver, not elsewhere classified Status: Acute Assessment and Plan: ? cirrhosis will assess with egd to see if any changes (7) Gluteal abscess: Code(s): L02.31 - Cutaneous abscess of buttock Status: Acute Assessment and Plan: already drained (8) Physical deconditioning: Code(s): R53.81 - Other malaise Status: Acute (9) Obesity, morbid, BMI 50 or higher: Code(s): E66.01 - Morbid (severe) obesity due to excess calories Status: Acute Subjective Date/time seen: 02/08/24 10:41 Interval history: still with diarrhea he is comfortable, no major changes Review of Systems Review of Systems: All systems reviewed & are unremarkable except as noted in HPI and below Exam Const: General: comfortable and no acute distress Other: A&O x3. Morbidly obese. HENMT: Face/Nose/Sinus: Normal nares present Eyes: Pupils: Equal, round and reactive pupils present Neck: Neck: supple Resp: Effort & Inspection: normal respiratory effort Auscultation: wheezes (Slight expiratory wheeze) Cardio: Rate: regular rate Rhythm: regular rhythm GI: GI Palp: Yes Soft to palpation and No Tenderness to palpation present (GI) Auscultation: normal bowel sounds Skin: General skin exam: no rashes or lesions noted Neuro: Speech: normal speech Extrem: General: no edema (Chronic venous stasis changes, lipodermatosclerosis. No overt edema) Psych: Affect: normal affect Objective Data Vital Signs Vital Signs: Vital Signs - 24 hr 02/07/24 14:00 02/07/24 16:20 02/07/24 16:40 Temperature 98.2 F 97.4 F L Pulse Rate 90 89 85 Pulse Rate [Apical] Respiratory Rate 20 16 16 Blood Pressure 117/65 109/61 123/59 L Pulse Oximetry 96 98 98 Oxygen Delivery 02/07/24 17:40 02/07/24 18:50 02/07/24 17:27 Temperature 97.9 F 97 F L Pulse Rate 96 90 Pulse Rate [Apical] 85 Respiratory Rate 20 20 Blood Pressure 114/62 139/71 139/71 Pulse Oximetry 96 100 Oxygen Delivery 02/07/24 19:51 02/07/24 19:52 02/07/24 20:00 Temperature 97.3 F L 97.3 F L Pulse Rate 85 85 Pulse Rate [Apical] Respiratory Rate 18 18 Blood Pressure 131/78 131/78 Pulse Oximetry 99 99 98 Oxygen Delivery Room Air 02/07/24 21:00 02/08/24 01:00 02/08/24 02:58 Temperature Pulse Rate Pulse Rate [Apical] 80 70 Respiratory Rate Blood Pressure 128/79 135/87 Pulse Oximetry 98 Oxygen Delivery Room Air 02/08/24 03:45 02/08/24 09:16 02/08/24 08:10 Temperature 97.8 F Pulse Rate 87 85 Pulse Rate [Apical] Respiratory Rate 16 Blood Pressure 102/60 Pulse Oximetry 94 94 Oxygen Delivery Room Air 02/08/24 08:10 Temperature Pulse Rate Pulse Rate [Apical] Respiratory Rate Blood Pressure
--- NOTE | 2024-02-08 16:25 | PM.IMPN ---
Progress Note: A&P Assessment and Plan (1) Positive occult stool blood test: Code(s): R19.5 - Other fecal abnormalities Status: Acute (2) Chronic alcohol use: Code(s): F10.90 - Alcohol use, unspecified, uncomplicated Status: Acute (3) Thrombocytopenia: Code(s): D69.6 - Thrombocytopenia, unspecified Status: Acute (4) Hepatic steatosis: Code(s): K76.0 - Fatty (change of) liver, not elsewhere classified Status: Acute (5) Acute hypokalemia: Code(s): E87.6 - Hypokalemia Status: Acute (6) Gluteal abscess: Code(s): L02.31 - Cutaneous abscess of buttock Status: Acute (7) Obstructive sleep apnea: Code(s): G47.33 - Obstructive sleep apnea (adult) (pediatric) Status: Acute (8) Normocytic anemia: Code(s): D64.9 - Anemia, unspecified Status: Acute (9) Colitis: Code(s): K52.9 - Noninfective gastroenteritis and colitis, unspecified Status: Acute Plan 68-year-old male with a past medical history morbid obesity with chronic stasis, ELIA noncompliant with CPAP, hypertension, asthma/COPD, chronic anemia, active smoker, alcohol abuse presents with complaint of abdominal pain. CT abdomen pelvis demonstrated mild pericolic inflammatory change above the cecum/ascending colon which is nonspecific. Patient admitted for further eval and workup on 02/01. Anxiety -patient received alprazolam 0.25 mg x 1 yesterday. Will give again today on 02/07 x1. The patient appears anxious lying in bed due to all of his acute issues going on and then further augmented as the is anxious to are not happy with the nursing protocols in place. Softly educated but also advised them that with assistance the patient can sit up in chair and even walking halls. Also will give melatonin tonight to help patient hopefully get some sleep. Colitis/positive stool occult -diarrhea persists. C diff negative and stool cultures no growth. Continue diet as tolerated. Plan for endoscopy/colonoscopy on Friday with GI. We will know more than. -Zosyn has been switched to Augmentin p.o. not appear septic/toxic otherwise. Hepatomegaly, suspected alcoholic liver disease -HIV 4th generation antibody negative. Hepatitis-C antibody positive. This test has a high false-positive rate so we will follow-up on the viral load. -abdominal ultrasound demonstrating diffuse fatty infiltration of the liver with associated hepatomegaly. Considering his alcoholism and pancytopenia he likely has alcoholic liver disease. He has been heavily counseled on this and he reports he will stop drinking. Should be following up with his PCP and or knife sharpener on this. MRI is a consideration as well tomorrow. Acute hypokalemia -replace Cutaneous abscess of the gluteal region -Already expressed. Continue to monitor with local wound care. Hyperglycemia -hemoglobin A1c 7.1%. T this can be elevated with anemia and his anemia is severe. Repeat HbA1c as outpatient Chronic anemia -stool occult positive. Hemoglobin 7.1 on 02/06. Patient amenable to receiving 1 unit PRBC. Giving now. Endoscopies on Friday with GI -iron studies suggestive of chronic inflammatory process. This is likely due to his alcoholism -hemoglobin stable after receiving 1 unit PRBC on 02/06 Thrombocytopenia -likely due to alcoholism. Continue to monitor. Avoid anticoagulants -patient has bruising all over his upper extremities. Consult heme oncology History of ELIA noncompliant with CPAP -educated and counseled. History of hypertension -at goal. Continue to monitor Prolonged QTC -takes amitriptyline at home. Hold that. Continue ondansetron and recheck EKG in the morning. Patient on telemetry Asthma/COPD -patient has a slight wheeze. He reports using a new albuterol nebulizer at home every day twice a day. Continue his home dose montelukast and Trelegy. Katherin wall. FEN: Saline lock IV. Bowel p
[2024-02-08] MEDS: IPRATROPIUM 0.5 MG/ALBUTEROL SULFATE 2.5 MG AMPUL.NEB 3 ML INHALATION (16:45)
[2024-02-08] MEDS: KCL 20 MEQ/SW 100 ML 100 ML 50 MEQ IVPB (16:52)
[2024-02-08] MEDS: ALPRAZolam (*CRX) 0.25 MG TABLET PO (16:52)
[2024-02-08] MEDS: polyethylene glycoL 3350 238 GM BOTTLE PO (16:52)
[2024-02-08] MEDS: BISACODYL 5 MG TABLET EC 20 MG PO (16:52)
[2024-02-08] MEDS: MELATONIN 5 MG TABLET PO (20:49)
[2024-02-09] VITALS (16 sets, daily range): BP systolic 86–145; BP diastolic 51–75; PULSE 70–98; RESP 16–27; TEMP 36–36.8; O2SAT 94–100
[2024-02-09] MEDS: MAGNESIUM CITRATE 300 ML BTL PO (03:44)
[2024-02-09 06:02] LABS: Basophils Percent Auto 0.4 % (0.2-1.2); Eosinophils Absolute Auto 0.2 K/mm3 (0-0.3); Eosinophils Percent Auto 1.9 % (0-4.4); Hematocrit 24.5 % (42.0-52.0); Hemoglobin 7.7 g/dL (14.0-18.0); Immature Granulocyte Absolute 0.36 K/mm3 (0.00-0.031); Lymphocytes Absolute Auto 1.15 K/mm3 (0.9-3.2); Lymphocytes Percent Auto 12.8 % (18.3-44.2); Mean Corpuscular HGB Conc 31.4 g/dl (32-36); Mean Corpuscular Hemoglobin 29.5 pg (26-34); Mean Corpuscular Volume 93.9 fl (80-100); Mean Platelet Volume 9.7 fl (7.4-10.4); Monocytes Absolute Auto 0.8 K/mm3 (0.1-0.6); Monocytes Percent Auto 8.4 % (2.6-8.5); Neutrophils Absolute Auto 6.5 K/mm3 (1.3-6.7); Neutrophils Percent Auto 72.5 % (45.5-73.1); Nucleated Red Blood Cells Perc 1.2 % (0.0-0.2); Platelet Count Result 147 k/mm3 (150-375); Red Blood Count 2.61 M/mm3 (4.6-6.20); Red Cell Distribution Width 16.1 % (11.5-14.5)
[2024-02-09 06:08] LABS: Alanine Aminotransferase 17 U/L (6-50); Albumin Level 2.7 g/dL (3.5-5.1); Alkaline Phosphatase 92 U/L (38-126); Anion Gap 5 mmol/L (8-16); Aspartate Amino Transferase 47 U/L (17-59); Bilirubin,Total 1.1 mg/dL (0.2-1.3); Blood Urea Nitrogen 9 mg/dL (9-20); Calcium 8.3 mg/dL (8.4-10.2); Carbon Dioxide 26 mmol/L (22-30); Chloride 104 mmol/L (98-107); Estimated CRCL calculation 117 ml/min; Estimated Glomerular Filt Rate > 60; Glucose 130 mg/dL (65-110); Magnesium 1.8 mg/dL (1.6-2.3); Potassium 2.9 mmol/L (3.4-5.0); Sodium 135 mmol/L (137-145)
[2024-02-09 06:24] LABS: Procalcitonin 0.8 ng/mL
[2024-02-09] MEDS: FLUTICASONE/UMECLIDIN/VILANTER 200-62.5-25 MCG ELLIPTA 1 PUFF INHALATION (07:26)
[2024-02-09] MEDS: IPRATROPIUM 0.5 MG/ALBUTEROL SULFATE 2.5 MG AMPUL.NEB 3 ML INHALATION ×2 (07:27→14:42)
[2024-02-09] MEDS: THIAMINE HCL 200 MG/2 ML VIAL 100 MG IV PUSH (08:19)
[2024-02-09] MEDS: FOLIC ACID 1 MG TABLET PO (08:19)
[2024-02-09] MEDS: TOLNAFTATE 1% POWDER 45 GM BTL 1 APPLIC TOPICAL (08:19)
[2024-02-09] MEDS: AMOXICILLIN/CLAVULANATE K 875-125 MG TAB 1 TABLET PO (08:19)
[2024-02-09] MEDS: PANTOPRAZOLE SODIUM IV 40 MG VIAL IV PUSH (08:19)
[2024-02-09] MEDS: MONTELUKAST SODIUM 10 MG TABLET BY MOUTH (08:20)
--- NOTE | 2024-02-09 09:02 | PCPTNOTE ---
The patient treatment was not able to be completed this A.M. on 02/09/2024 due to patient out of the room for procedure. Will plan to continue treatment per plan of care.
--- NOTE | 2024-02-09 09:08 | WPDANESEPPF ---
Anes - Initial Pre Proc Eval Procedure: Operation Date: 02/09/24 15:00 Proposed Procedures p Esophagogastroduodenoscopy & Colonoscopy - Gurpreet Emery MD Date/Time: 02/09/24 09:08 Surgeon: Tawana Ramires DO Pre Op Diagnosis: Colitis/Hypokalemia Patient Data Age: 68 Gender: M Height: 1.85 m Weight: 173 kg Last Vital Signs Temp 96.8 F L 02/09/24 09:02 Pulse 93 02/09/24 09:02 Resp 18 02/09/24 09:02 BP 86/63 L 02/09/24 09:02 Pulse Ox 98 02/09/24 09:02 O2 Del Method Room Air 02/09/24 09:02 O2 Flow Rate 1 02/03/24 08:32 FiO2 21 02/08/24 20:00 Allergies Allergy/AdvReac Type Severity Reaction Status Date / Time No Known Allergies Allergy Verified 02/09/24 09:02 Home Medications Medication Instructions Recorded Confirmed Type amitriptyline 50 mg tablet 50 mg PO HS 01/28/23 02/02/24 History amlodipine 10 mg tablet 10 mg QAM 01/28/23 02/02/24 History fluticasone fur. 200 mcg-umeclid 1 inh inhalation DAILY 01/28/23 02/02/24 History 62.5 mcg-vilant 25 mcg inhalat.powder (Trelegy Ellipta) hydrochlorothiazide 25 mg tablet 25 mg QAM 01/28/23 02/02/24 History montelukast 10 mg tablet 10 mg QAM 01/28/23 02/02/24 History albuterol sulfate 90 mcg/actuation 2 puff inhalation Q4-5H PRN 02/05/23 02/02/24 History aerosol inhaler Wheezing hydrocodone 7.5 mg-acetaminophen 1 tablet PO Q4H PRN pain #40 tabs 02/05/23 02/02/24 Rx 325 mg tablet carvedilol 12.5 mg tablet 12.5 mg PO BID 02/02/24 02/02/24 History chlorthalidone 25 mg tablet 25 mg PO DAILY 02/02/24 02/02/24 History furosemide 40 mg tablet 40 mg PO BID 02/02/24 02/02/24 History Laboratory Tests 02/09/24 05:24 WBC 9.0 K/mm3 (4.5-10.0) RBC 2.61 L M/mm3 (4.6-6.20) Hgb 7.7 L g/dL (14.0-18.0) Hct 24.5 L % (42.0-52.0) MCV 93.9 fl (80-100) MCH 29.5 pg (26-34) MCHC 31.4 L g/dl (32-36) RDW 16.1 H % (11.5-14.5) Plt Count 147 L k/mm3 (150-375) MPV 9.7 fl (7.4-10.4) Immature Gran % (Auto) 4.0 H % (0-0.5) Neut % (Auto) 72.5 % (45.5-73.1) Lymph % (Auto) 12.8 L % (18.3-44.2) [place] % (Auto) 8.4 % (2.6-8.5) Eos % (Auto) 1.9 % (0-4.4) Baso % (Auto) 0.4 % (0.2-1.2) Lymph # (Auto) 1.15 K/mm3 (0.9-3.2) [place] # (Auto) 0.8 H K/mm3 (0.1-0.6) Eos # (Auto) 0.2 K/mm3 (0-0.3) Baso # (Auto) 0.0 K/mm3 (0.0-0.1) Abs Immat Gran (auto) 0.36 H K/mm3 (0.00-0.031) Absolute Neuts (auto) 6.5 K/mm3 (1.3-6.7) Absolute Nucleated RBC 0.110 H K/mm3 (0.0-0.012) Nucleated RBC % 1.2 H % (0.0-0.2) Sodium 135 L mmol/L (137-145) Potassium 2.9 L mmol/L (3.4-5.0) Chloride 104 mmol/L (98-107) Carbon Dioxide 26 mmol/L (22-30) Anion Gap 5 L mmol/L (8-16) BUN 9 mg/dL (9-20) Creatinine 0.90 mg/dL (0.7-1.3) Estim Creat Clear Calc 117 ml/min Estimated GFR > 60 (59 - ) Glucose 130 H mg/dL (65-110) Calcium 8.3 L mg/dL (8.4-10.2) Magnesium 1.8 mg/dL (1.6-2.3) Total Bilirubin 1.1 mg/dL (0.2-1.3) AST 47 U/L (17-59) ALT 17 U/L (6-50) Alkaline Phosphatase 92 U/L (38-126) Total Protein 6.0 L g/dL (6.3-8.2) Albumin 2.7 L g/dL (3.5-5.1) Procalcitonin 0.8 ng/mL Patient hx anesthesia problems: none Family hx anesthesia problems: none Results Review: All pre-operative results and documents have been reviewed as part of the pre-operative evaluation. [facility] Past Medical History Medical History Acute on chronic anemia Chronic pain syndrome COPD (chronic obstructive pulmonary disease) Hepatic steatosis Hypertension Morbid obesity Obstructive sleep apnea Smoker Social History Social History Smoking status: Current every day smoker Second hand tobacco smoke exposure: Yes Alcohol intake: current Drinks per week: 6 Substance use: never Substan
--- NOTE | 2024-02-09 09:09 | PC.NURSE ---
pt of floor at this time for procedure.
--- NOTE | 2024-02-09 09:31 | SUR.OPER ---
EGD: [id number], . COLON: START, 940
[2024-02-09] MEDS: LACTATED RINGERS 1,000 ML 150 ML IV CONT (09:42)
--- NOTE | 2024-02-09 10:52 | PC.NURSE ---
pt back in room at this time.
--- NOTE | 2024-02-09 16:08 | PM.DS ---
DS: Admitting Diagnosis Discharge Date 02/09/24 Admitting Diagnosis February 09, 2024 DS: Discharge Diagnosis Discharge Diagnosis (1) Thrombocytopenia: Code(s): D69.6 - Thrombocytopenia, unspecified Status: Acute (2) Hepatic steatosis: Code(s): K76.0 - Fatty (change of) liver, not elsewhere classified Status: Acute (3) Positive occult stool blood test: Code(s): R19.5 - Other fecal abnormalities Status: Acute DS: Summary Hospital Course Hospital Course: 68-year-old male with a past medical history morbid obesity with chronic stasis, ELIA noncompliant with CPAP, hypertension, asthma/COPD, chronic anemia, active smoker, alcohol abuse presents with complaint of abdominal pain.? CT abdomen pelvis demonstrated mild pericolic inflammatory change above the cecum/ascending colon which is nonspecific.? Patient admitted for further eval and workup on 02/01. On 02/08 the patient underwent EGD and colonoscopy which demonstrated hiatal hernia and gastritis with multiple biopsies taken and diverticulosis without perforation or abscess without bleeding and internal hemorrhoids. Shortly after the patient and complained of a poor hospital system causing extreme agitation and anxiety with the patient. I held a lengthy conversation attempting to ease their concerns and advised them to allow workup to continue and specifically to treat his hypokalemia as he is at risk of arrhythmias and . They understood and ultimately decided to leave AMA. The patient reported he had no more diarrhea and would be able to eat at his own will and he has no more abdominal pain. The patient was treated with Augmentin for suspected colitis although the colonoscopy did not reveal such findings. The patient found to have hepatomegaly and fatty infiltration of the liver with hepatitis-C antibody positive. Pending hepatitis C viral RNA. The patient also has pancytopenia. Advised the patient on multiple occasions to continue to work up what appears to be liver disease secondary to RAMIREZ or alcohol or hepatitis C. Also, patient had a cutaneous abscess of the gluteal region which was already expressed and being taking care of by local wound care. He received 1 unit PRBC for acute on chronic anemia. Iron and ferritin studies demonstrating chronic inflammatory process. Again he is also a heavy drinker. Stool occult was also positive. The patient left AMA on 02/08 in stable condition. He was A&O x4 and competent to make decisions. Furthermore, the was adamant as well he should leave AMA. A very strenuous attempt was made to elicit concerns and answer their questions to their satisfaction. The patient was full code during his admission. Time Spent with Patient Time attestation: Total time spent providing and/or coordinating discharge services: Exam Const: General: comfortable Other: A&O x3. Morbidly obese. Mildly distressed due to anxiety Eyes: Pupils: Equal, round and reactive pupils present Neck: Neck: supple Resp: Effort & Inspection: normal respiratory effort Auscultation: wheezes (Slight expiratory wheeze) Cardio: Rate: regular rate Rhythm: regular rhythm Heart sounds: no gallops, no murmurs and no rubs GI: GI Palp: Yes Soft to palpation and No Tenderness to palpation present (GI) Extrem: General: no edema (Chronic venous stasis changes, lipodermatosclerosis. No overt edema) DS: Data Data Completed and Pending Pending studies at discharge: Pending at discharge 02/09/24 09:26 Surgical [PTH] Routine Surgical [PTH] Routine Labs on day of discharge: Labs from last 24 hours 02/09/24 05:24 WBC 9.0 RBC 2.61 L Hgb 7.7 L Hct 24.5 L MCV 93.9 MCH 29.5 MCHC 31.4 L RDW 16.1 H Plt Count 147 L MPV 9.7 Immature Gran % (Auto) 4.0 H Neut % (Auto) 72.5 Lymph % (Auto) 12.8 L [place] % (Auto) 8.4 Eos % (Auto) 1.9 Baso % (Auto) 0.4 Lymph # (Auto) 1.15 [place] # (Au
--- NOTE | 2024-02-09 17:21 | PDONCCN ---
HPI - Date of Consult Date/Time: 02/09/24 17:21 Requesting Physician: Tawana Ramires DO Primary Care Provider: Glenn Roche, - Consult Narrative Reason for consult: Thrombocytopenia and anemia Narrative: Reji Vasquez is a 68 year old male with history of obesity, hypertension, asthma/COPD and sleep apnea came into the hospital with abdominal pain. CT abdomen and pelvis showed pericolonic inflammatory changes in the cecum ascending colon with small right-sided pleural effusion. He was admitted to the hospital for colitis. CT scan also showed diffuse hepatic steatosis. He denies any previous history of liver disease. He drinks alcohol on a regular basis. Labs showed hemoglobin of 7.3 with platelet count of [id number]. He denies any bleeding and bruising. He complain of tiredness and fatigue. Patient received 1 unit of packed red blood cell. He denies any previous history of anemia. Denies any previous history of gastric bypass surgery. Denies being a vegetarian. Review of Systems - Review of Systems All systems reviewed & are unremarkable except as noted in HPI and bel - Neurologic Reports system reviewed and no additional complaints, except as documented, Reports hearing normal, Reports abnormal gait, Reports weakness, Denies confusion, Denies headache(s) [facility] Medical History: Medical History (Last Updated 02/05/24 @ 15:44 by Gurpreet Emery MD) Acute on chronic anemia Chronic pain syndrome COPD (chronic obstructive pulmonary disease) Hepatic steatosis Hypertension Morbid obesity Obstructive sleep apnea Smoker - Social History Social History: Social History (Last Reviewed 02/03/24 @ 20:50 by David Mayer MD) Alcohol Use: Alcohol intake: current Drinks per week: 6 Substance Use: Substance use: never Substance use type: does not use Others: Spiritual care concerns: No Living Arrangements: Living arrangements: with family Smoking Status: Smoking status: Current every day smoker Second hand tobacco smoke exposure: Yes Social Determinants of Health: Do You Feel Safe in your Home?: Yes Has the Lack of Transportation Kept You From Medical Appointments or From Getting Medications?: No Within the Past 12 Months, Were You Worried Whether Your Food Would Run Out Before You Got Money to Buy More?: Never True What is Your Housing Situation Today?: I Have Housing Are You Worried That in the Next 2 Months, You May Not Have Your Own Housing to Live In?: No Do You Have Trouble Paying Your Heating Or Electricity Bill?: No Do You Have Trouble Paying For Medicines?: No Are You Currently Unemployed and Looking for Work?: No Highest Level of Education Completed: High School Diploma/GED Do You Have Trouble With Childcare or the Care of a Family Member?: No Exam - Vital Signs Vital Signs - 24 hr 02/08/24 20:47 02/08/24 20:00 02/08/24 21:00 Temperature 36.7 C Pulse Rate 88 88 Pulse Rate [Apical] 70 Respiratory Rate 18 18 Blood Pressure 132/75 132/75 Pulse Oximetry 100 100 Oxygen Delivery Room Air Fraction of Inspired Oxygen 21 02/09/24 00:00 02/09/24 01:00 02/09/24 04:00 Temperature Pulse Rate 90 98 Pulse Rate [Apical] 70 Respiratory Rate Blood Pressure 132/75 Pulse Oximetry Oxygen Delivery Fraction of Inspired Oxygen 02/09/24 05:37 02/09/24 05:00 02/09/24 07:29 Temperature 36.8 C Pulse Rate 83 78 Pulse Rate [Apical] 70 Respiratory Rate 18 18 Blood Pressure 145/70 H 145/70 H Pulse Oximetry 100 Oxygen Delivery Fraction of Inspired Oxygen 02/09/24 07:35 02/09/24 07:29 02/09/24 09:02 Temperature 36.0 C L Pulse Rate 81 93 Pulse Rate [Apical] Respiratory Rate 18 18 Blood Pressure 86/63 L Pulse Oximetry 96 98 Oxygen Delivery Room Air Room Air Fraction of Inspired Oxygen 02/09/24 08:00 02/09/24 08:00
[2024-02-10 07:35] LABS: Haptoglobin 186 mg/dL (43-212)
[2024-02-10 09:48] LABS: Hepatitis C RNA, Quant PCR 1840000 IU/mL
[2024-02-12 00:57] LABS: Calprotectin, Stool 132 mcg/g
== END 2024-02-09 15:35 | disposition left against medical advice (07) | DRG 392 ==
LOC: ANHED 06:16 → ANH3MEDSUR 09:27 → ANH2MED 12:57
PROVIDERS: Internal Medicine; Internal Medicine Gastroenterology; Nurse Practitioner; Admitting Provider Internal Medicine; Emergency Provider Emergency Medicine; PCP Internal Medicine; Visit Provider General Practice
PROC: 0DJ08ZZ Inspection of Upper Intestinal Tract, Via Natural or Artificial Opening Endoscopic (ICD-10-PCS; CPT 43235; principal; 2024-02-09 15:00)
DX: K57.30 Diverticulosis of large intestine without perforation or abscess without bleeding (principal); Z68.43 Body mass index [BMI] 50.0-59.9, adult; E87.1 Hypo-osmolality and hyponatremia; E87.20 Acidosis, unspecified; L02.31 Cutaneous abscess of buttock; K76.0 Fatty (change of) liver, not elsewhere classified; K29.70 Gastritis, unspecified, without bleeding; K44.9 Diaphragmatic hernia without obstruction or gangrene; K64.8 Other hemorrhoids; D64.9 Anemia, unspecified; D69.6 Thrombocytopenia, unspecified; E87.6 Hypokalemia; E66.01 Morbid (severe) obesity due to excess calories; F17.210 Nicotine dependence, cigarettes, uncomplicated; F10.10 Alcohol abuse, uncomplicated; G89.4 Chronic pain syndrome; G47.33 Obstructive sleep apnea (adult) (pediatric); I10 Essential (primary) hypertension; J44.9 Chronic obstructive pulmonary disease, unspecified; R53.81 Other malaise; R19.5 Other fecal abnormalities; R73.9 Hyperglycemia, unspecified; Z86.010 Personal history of colon polyps; Z99.89 Dependence on other enabling machines and devices; Z91.199 Patient's noncompliance with other medical treatment and regimen due to unspecified reason; Z28.21 Immunization not carried out because of patient refusal
CPT/HCPCS: 36415; 36430; 36600; 74018; 74177; 76705; 80048; 80053; 80074; 80307; 82140; 82274; 82607; 82728; 82746; 82805; 82948; 83010; 83036; 83540; 83550; 83605; 83615; 83690; 83735; 83880; 83930; 83993; 84100; 84145; 84484; 85025; 85055; 85610; 85652; 85730; 86140; 86703; 86850; 86900; 86901; 86923; 87040; 87045; 87427; 87449; 87493; 87522; 88305; 93005; 94640; 96361; 96365; 96366; 96368; 96372; 96375; 96376; 97110; 97161; 97166; 97530; 99285; A9270; C9113; G0378; G0432; J1650; J1885; J2060; J2405; J2543; J2704; J3411; J3480; J7030; J7050; J7120; P9016; Q9967